=== PATIENT | female | born 1955 | race Caucasian/White ===

== ENCOUNTER 2016-07-21 11:20 | Outpatient (CLI) | payer OTHER | END 2016-07-21 11:21 | disposition home or self-care (01) | DX: R63.1 Polydipsia (principal); F10.20 Alcohol dependence, uncomplicated ==

== ENCOUNTER 2016-07-27 08:00 | Outpatient (CLI) | payer OTHER | END 2016-07-27 08:01 | disposition home or self-care (01) | DX: E87.1 Hypo-osmolality and hyponatremia (principal) ==

== ENCOUNTER 2016-11-15 10:10 | Outpatient (CLI) | payer OTHER ==
[2016-11-15 12:48] LABS: CALCIUM 9.1 mg/dL (8.5-10.3); CREATININE 0.6 mg/dL (0.4-1.0); POTASSIUM 3.8 mmol/L (3.5-5.0)
[2016-11-15 13:05] LABS: BASOPHILS % (AUTO) 0.7 %; EOSINOPHILS % (AUTO) 0.6 %; HCT - HEMATOCRIT 35.9 % (37.0-47.0); HGB - HEMOGLOBIN 12.5 g/dL (12.0-16.0); LYMPHOCYTES % (AUTO) 19.3 %; MEAN CORPUSCULAR HEMOGLOBIN 33.3 pg (27.0-31.0); MEAN CORPUSCULAR HGB CONC 34.9 g/dL (32.0-36.0); MEAN CORPUSCULAR VOLUME 95.3 fL (81.0-99.0); MEAN PLATELET VOLUME 7.8 fL (7.9-10.8); MONOCYTES # (AUTO) 0.5 10^3/uL (0.0-1.0); NEUTROPHILS # (AUTO) 3.6 10^3/uL (1.5-6.6); NEUTROPHILS % (AUTO) 70.4 %; NUCLEATED RED BLOOD CELLS AUTO 0.1 /100WBC; RED BLOOD COUNT 3.76 10^6/uL (4.20-5.40); RED CELL DISTRIBUTION WIDTH 12.5 % (12.0-15.0); UNCORRECTED WHITE BLOOD COUNT 5.1 x10^3/uL; WHITE BLOOD COUNT 5.1 x10^3/uL (4.8-10.8)
== END 2016-11-15 10:11 | disposition home or self-care (01) ==
LOC: LAB.WCP 10:10
PROVIDERS: ATTEND Family Medicine
DX: R42 Dizziness and giddiness (principal)
CPT/HCPCS: 36415; 80053; 85025

== ENCOUNTER 2017-05-30 11:09 | Emergency (ER) | payer OTHER ==
[2017-05-30 12:41] LABS: ALBUMIN 4.9 g/dL (3.2-5.5); ALBUMIN/GLOBULIN RATIO 1.7 (1.0-2.2); BILIRUBIN,TOTAL 0.8 mg/dL (0.2-1.0); CALCIUM 9.3 mg/dL (8.5-10.3); CREATININE 0.7 mg/dL (0.4-1.0); TOTAL PROTEIN 7.8 g/dL (6.7-8.2)
[2017-05-30 12:50] LABS: BASOPHILS % (AUTO) 0.2 %; EOSINOPHILS % (AUTO) 0.3 %; HGB - HEMOGLOBIN 13.8 g/dL (12.0-16.0); LYMPHOCYTES # (AUTO) 0.8 10^3/uL (1.5-3.5); LYMPHOCYTES % (AUTO) 11.3 %; MEAN CORPUSCULAR HEMOGLOBIN 33.2 pg (27.0-31.0); MEAN CORPUSCULAR HGB CONC 33.5 g/dL (32.0-36.0); MEAN CORPUSCULAR VOLUME 99.2 fL (81.0-99.0); MEAN PLATELET VOLUME 7.8 fL (7.9-10.8); MONOCYTES # (AUTO) 0.7 10^3/uL (0.0-1.0); MONOCYTES % (AUTO) 9.1 %; NEUTROPHILS # (AUTO) 5.9 10^3/uL (1.5-6.6); NEUTROPHILS % (AUTO) 79.1 %; PLT - PLATELET COUNT 371 10^3/uL (130-450); RED BLOOD COUNT 4.15 10^6/uL (4.20-5.40); RED CELL DISTRIBUTION WIDTH 13.5 % (12.0-15.0); WHITE BLOOD COUNT 7.4 x10^3/uL (4.8-10.8)
--- NOTE | 2017-05-30 12:51 | XRAY Preliminary Report ---
Exam: XR CHEST 2 VIEW X-RAY IMPRESSION: 1. No acute disease in the chest. [facility] SITE ID: [id number]
--- NOTE | 2017-05-30 12:52 | XRAY Report ---
EXAM: CHEST RADIOGRAPHY EXAM DATE: 05/30/2017 12:41 PM. CLINICAL HISTORY: Cough. Weakness. Dyspnea on exertion COMPARISON: None. TECHNIQUE: 2 views. FINDINGS: Lungs/Pleura: No focal opacities evident. No pleural effusion. No pneumothorax. Normal volumes. Mediastinum: Heart size is normal. Aorta is mildly tortuous. Other: Degenerative of the thoracic spine and both shoulders. IMPRESSION: 1. No acute disease in the chest. [facility] Referring Provider Line: [phone] SITE ID: [id number]
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
[2017-05-30 13:07] VITALS: BP 187/108
[2017-05-30 13:07] LABS: RBC MORPHOLOGY (MULTIPLE) 2+ ANISOCYTOSIS (NORMAL)
== END 2017-05-30 13:07 | disposition home or self-care (01) ==
LOC: ED 11:09
DX: J06.9 Acute upper respiratory infection, unspecified (principal); E87.1 Hypo-osmolality and hyponatremia; R74.0 Nonspecific elevation of levels of transaminase and lactic acid dehydrogenase [LDH]; F10.20 Alcohol dependence, uncomplicated; R00.0 Tachycardia, unspecified; R03.0 Elevated blood-pressure reading, without diagnosis of hypertension
CPT/HCPCS: 36415; 71046; 80053; 83605; 83690; 85025; 99283

== ENCOUNTER 2018-07-04 11:30 | Outpatient (CLI) | payer OTHER ==
[2018-07-04 19:33] LABS: BASOPHILS % (AUTO) 0.8 %; EOSINOPHILS # (AUTO) 0.1 10^3/uL (0.0-0.7); HGB - HEMOGLOBIN 13.3 g/dL (12.0-16.0); LYMPHOCYTES % (AUTO) 17.6 %; MEAN CORPUSCULAR HEMOGLOBIN 33.5 pg (27.0-31.0); MEAN CORPUSCULAR HGB CONC 34.1 g/dL (32.0-36.0); MEAN CORPUSCULAR VOLUME 98.2 fL (81.0-99.0); MEAN PLATELET VOLUME 7.9 fL (7.9-10.8); MONOCYTES # (AUTO) 0.5 10^3/uL (0.0-1.0); MONOCYTES % (AUTO) 9.6 %; PLT - PLATELET COUNT 284 10^3/uL (130-450); RED BLOOD COUNT 3.98 10^6/uL (4.20-5.40); RED CELL DISTRIBUTION WIDTH 12.8 % (12.0-15.0); WHITE BLOOD COUNT 5.6 x10^3/uL (4.8-10.8)
[2018-07-04 20:42] LABS: ALBUMIN/GLOBULIN RATIO 1.7 (1.0-2.2)
[2018-07-04 20:43] LABS: ALBUMIN 4.7 g/dL (3.2-5.5); ALKALINE PHOSPHATASE 61 IU/L (42-121); ALT ALANINE AMINOTRANSFERASE 34 IU/L (10-60); AST ASPARTATE AMINOTRANSFERASE 31 IU/L (10-42); BILIRUBIN,TOTAL 1.2 mg/dL (0.2-1.0); BUN - BLOOD UREA NITROGEN 11 mg/dL (6-20); CALCIUM 9.1 mg/dL (8.5-10.3); CARBON DIOXIDE - CO2 28 mmol/L (21-32); CHLORIDE 82 mmol/L (101-111); CHOL/HDL RATIO 1.9 (<4.4); CHOLESTEROL 235 mg/dL; CREATININE 0.5 mg/dL (0.4-1.0); GFR - MDRD 124 (>89); GLUCOSE 125 mg/dL (70-100); HDL CHOLESTEROL 125 mg/dL; TOTAL PROTEIN 7.4 g/dL (6.7-8.2); URIC ACID 3.5 mg/dL (2.6-7.2)
[2018-07-04 20:54] LABS: SODIUM 119 mmol/L (135-145)
[2018-07-04 21:19] LABS: LDL CHOLESTEROL,DIRECT 97 mg/dL; LDLD/HDL RATIO 0.8 (<4.4)
== END 2018-07-04 11:31 | disposition home or self-care (01) ==
LOC: LAB.WCP 11:30
PROVIDERS: ATTEND Family Medicine
DX: I10 Essential (primary) hypertension (principal); F10.20 Alcohol dependence, uncomplicated
CPT/HCPCS: 36415; 80053; 80061; 83721; 84550; 85025

== ENCOUNTER 2018-07-05 11:36 | Outpatient (CLI) | payer OTHER ==
[2018-07-05 12:29] LABS: ALBUMIN 4.9 g/dL (3.2-5.5); ALBUMIN/GLOBULIN RATIO 1.8 (1.0-2.2); BILIRUBIN,TOTAL 1.3 mg/dL (0.2-1.0); CALCIUM 8.8 mg/dL (8.5-10.3); CREATININE 0.5 mg/dL (0.4-1.0); TOTAL PROTEIN 7.6 g/dL (6.7-8.2)
== END 2018-07-05 11:37 | disposition home or self-care (01) ==
LOC: LAB 11:36
PROVIDERS: ATTEND Family Medicine
DX: E87.1 Hypo-osmolality and hyponatremia (principal)
CPT/HCPCS: 36415; 80053; 83930; 83935; 84300

== ENCOUNTER 2018-07-09 10:04 | Outpatient (CLI) | payer OTHER ==
[2018-07-09 18:08] LABS: CALCIUM 9.4 mg/dL (8.5-10.3); CREATININE 0.5 mg/dL (0.4-1.0)
== END 2018-07-09 10:05 | disposition home or self-care (01) ==
LOC: LAB.F 10:04
PROVIDERS: ATTEND Family Medicine
DX: E87.1 Hypo-osmolality and hyponatremia (principal)
CPT/HCPCS: 36415; 80048; 83930; 83935; 84300

== ENCOUNTER 2018-08-21 11:20 | Outpatient (CLI) | payer OTHER ==
[2018-08-21 19:32] LABS: ALBUMIN 4.7 g/dL (3.2-5.5); ALBUMIN/GLOBULIN RATIO 1.7 (1.0-2.2); BILIRUBIN,TOTAL 1.2 mg/dL (0.2-1.0); CALCIUM 8.8 mg/dL (8.5-10.3); CREATININE 0.4 mg/dL (0.4-1.0); TOTAL PROTEIN 7.4 g/dL (6.7-8.2)
== END 2018-08-21 11:21 | disposition home or self-care (01) ==
LOC: LAB.WCP 11:20
PROVIDERS: ATTEND Family Medicine
DX: E87.1 Hypo-osmolality and hyponatremia (principal)
CPT/HCPCS: 36415; 80053

== ENCOUNTER 2018-09-29 13:23 | Outpatient (CLI) | payer MEDICARE, OTHER | END 2018-09-29 13:24 | disposition critical access hospital (66) | LOC: EMS 13:23 | PROVIDERS: ATTEND Surgery | DX: R07.9 Chest pain, unspecified (principal); R06.02 Shortness of breath ==

== ENCOUNTER 2018-09-29 13:43 | Emergency (ER) | payer MEDICARE, OTHER ==
[2018-09-29 14:12] LABS: BILIRUBIN,URINE NEGATIVE (NEGATIVE); GLUCOSE, URINE (UA) NEGATIVE (NEGATIVE); KETONES,URINE (UA) NEGATIVE (NEGATIVE); LEUKOCYTE ESTERASE, URINE NEGATIVE (NEGATIVE); NITRITE,URINE NEGATIVE (NEGATIVE); OCCULT BLOOD,URINE NEGATIVE (NEGATIVE); PROTEIN,URINE NEGATIVE (NEGATIVE); UROBILINOGEN,URINE 0.2 (NORMAL) E.U./dL (NORMAL)
[2018-09-29 14:15] LABS: CLARITY,URINE CLEAR (CLEAR)
--- NOTE | 2018-09-29 14:33 | ED Physician Documentation ---
History of Present Illness - Stated complaint Stated Complaint: ALLERGIC RX - Chief complaint Chief Complaint: Allergic Rx - History obtained from History obtained from: Patient, EMS - History of Present Illness Timing: How many hours ago (2) Pain level max: 0 Pain level now: 0 Improved by: nothing Worsened by: nothing - Additonal information Additional information: states she started naltrexone today to reduce EtOH cravings. Normally drinks 1.5 liters of wine per day. States drank more than usual last night and took naltrexone for the first time today. Feels tired, weak and like she had a hard time breathing. No rash. Thinks her tongue felt swollen, states that she feels better now. No meds taken. Review of Systems Constitutional: denies: Fever, Chills Respiratory: denies: Cough GI: denies: Nausea, Vomiting, Diarrhea Skin: denies: Rash Musculoskeletal: denies: Neck pain, Back pain Neurologic: denies: Headache PD PAST MEDICAL HISTORY - Past Medical History Past Medical History: Yes GI: GERD - Past Surgical History Past Surgical History: Yes General: Appendectomy Ortho: Spine surgery HEENT: Cataracts - Present Medications Home Medications: Ambulatory Orders Medication Instructions Recorded Confirmed Naltrexone HCl 50 mg PO DAILY 09/29/18 09/29/18 Omeprazole 20 mg PO DAILY 09/29/18 09/29/18 - Allergies Allergies/Adverse Reactions: Allergies Allergy/AdvReac Type Severity Reaction Status Date / Time Sulfa (Sulfonamide Allergy Intermediate Hives Verified 09/29/18 14:44 Antibiotics) - Living Situation Living Arrangement: reports: At home - Social History Does the pt smoke?: No Smoking Status: Never smoker Does the pt drink ETOH?: Yes ETOH Use: Wine Does the pt have substance abuse?: No - Family History Family history: reports: Non contributory - Immunizations Immunizations are current?: Yes PD ED PE NORMAL - Vitals Vital signs reviewed: Yes - General General: Alert and oriented X 3, No acute distress, Well developed/nourished - HEENT HEENT: PERRL, Ears normal, Moist mucous membranes, Pharynx benign - Neck Neck: Supple, no meningeal sign - Cardiac Cardiac: RRR, Strong equal pulses - Respiratory Respiratory: No respiratory distress, Clear bilaterally - Abdomen Abdomen: Soft, Non tender, Non distended - Derm Derm: Warm and dry, No rash - Extremities Extremities: No edema - Neuro Neuro: Alert and oriented X 3 - Psych Psych: Normal mood, Normal affect Results - Vitals Vitals: Vital Signs - 24 hr 09/29/18 09/29/18 13:54 15:50 Temperature 36.6 C Heart Rate 76 74 Respiratory 15 13 Rate Blood Pressure 172/97 H 182/90 H O2 Saturation 100 100 Oxygen O2 Source Room air - EKG (time done) 1409 Rate: Rate (enter#) (73) Rhythm: NSR [place]: Normal Intervals: Normal [place] QRS: Normal Ischemia: Normal ST segments - Labs Labs: Laboratory Tests 09/29/18 09/29/18 09/29/18 14:05 14:55 14:55 WBC 3.7 L RBC 3.54 L Hgb 11.9 L Hct 35.0 L MCV 99.0 MCH 33.7 H MCHC 34.0 RDW 13.1 Plt Count 243 MPV 7.9 Neut # (Auto) 2.7 Lymph # (Auto) 0.5 L [place] # (Auto) 0.4 Eos # (Auto) 0.1 Baso # (Auto) 0.0 Absolute Nucleated RBC 0.00 Nucleated RBC % 0.1 Sodium 130 L Potassium 3.9 Chloride 93 L Carbon Dioxide 24 Anion Gap 13.0 BUN 13 Creatinine 0.4 Estimated GFR (MDRD) 160 Glucose 118 H Calcium 9.0 Total Bilirubin 1.0 AST 20 ALT 20 Alkaline Phosphatase 65 Total Protein 6.6 L Albumin 4.4 Globulin 2.2 Albumin/Globulin Ratio 2.0 Lipase 28 Urine Color LIGHT YELLOW Urine Clarity CLEAR Urine pH 7.0 Ur Specific [place] <=1.005 Urine Protein NEGATIVE Urine Glucose (UA) NEGATIVE Urine Ketones NEGATIVE Urine Occult Blood NEGATIVE Urine Nitrite NEGATIVE Urine Bilirubin NEGATIVE Urine Urobilinogen 0.2 (NORMAL) Ur Leukocyte Esterase NEGATIVE Ur Microscopic Review NOT INDICATED Urine Culture Comments NOT INDICATED PD MEDICAL DECISION MAKING - ED course Complexity details: reviewed results, re-evaluated patient, considered differential, d/w patient ED course: No acute findings here. Appears to be a medication side effect. Will stop the naltrexone. We will have her follow-up with her doctor for further care. Patient has had hyponatremia in the past, therefore laboratory testing was performed. She was also given IV fluids. Patient counseled regarding signs and symptoms for which I believe and urgent re-evaluation would be necessary. Patient with good understanding of and agreement to plan and is comfortable going home at this time This document was made in part using voice recognition software. While efforts are made to proofread this document, sound alike and grammatical errors may occ ur. Departure - Departure Disposition: 01 Home, Self Care Clinical Impression: Medication side effect Condition: Good Instructions: ED Drug React Adverse Other Follow-Up: Bebeto Lyons DO [Primary Care Provider] - Within 1 week Comments: Talk to your doctor to decide if he should continue taking the naltrexone. Gabapentin may also be used to decrease alcohol cravings and they may want to change you to this. Return if you worsen Discharge Date/Time: 09/29/18 15:53
[2018-09-29] MEDS ORDERED: SODIUM CHLORIDE 0.9% 1,000 ML IV ONE (14:42)
[2018-09-29 15:25] LABS: EOSINOPHILS # (AUTO) 0.1 10^3/uL (0.0-0.7); EOSINOPHILS % (AUTO) 1.5 %; HGB - HEMOGLOBIN 11.9 g/dL (12.0-16.0); LYMPHOCYTES # (AUTO) 0.5 10^3/uL (1.5-3.5); LYMPHOCYTES % (AUTO) 14.2 %; MEAN CORPUSCULAR HEMOGLOBIN 33.7 pg (27.0-31.0); MEAN PLATELET VOLUME 7.9 fL (7.9-10.8); MONOCYTES # (AUTO) 0.4 10^3/uL (0.0-1.0); MONOCYTES % (AUTO) 11.3 %; NEUTROPHILS # (AUTO) 2.7 10^3/uL (1.5-6.6); PLT - PLATELET COUNT 243 10^3/uL (130-450); RED BLOOD COUNT 3.54 10^6/uL (4.20-5.40); RED CELL DISTRIBUTION WIDTH 13.1 % (12.0-15.0); WHITE BLOOD COUNT 3.7 x10^3/uL (4.8-10.8)
[2018-09-29 15:41] LABS: ALBUMIN 4.4 g/dL (3.2-5.5); CREATININE 0.4 mg/dL (0.4-1.0); TOTAL PROTEIN 6.6 g/dL (6.7-8.2)
[2018-09-29 15:52] VITALS: BP 182/90
== END 2018-09-29 15:53 | disposition home or self-care (01) ==
LOC: EDUNIT# → ED 13:43
DX: R53.83 Other fatigue (principal); R53.1 Weakness; R06.00 Dyspnea, unspecified; T50.7X5A Adverse effect of analeptics and opioid receptor antagonists, initial encounter
CPT/HCPCS: 36415; 80053; 81001; 81003; 83690; 85025; 87086; 93005; 96360; 99282; 99283

== ENCOUNTER 2018-09-30 15:17 | Outpatient (CLI) | payer MEDICARE, OTHER | END 2018-09-30 23:59 | disposition home or self-care (01) | LOC: LAB.WCP 15:17 | PROVIDERS: ATTEND Family Medicine | DX: Z23 Encounter for immunization (principal) | CPT/HCPCS: 36415; 86765 ==

== ENCOUNTER 2018-10-14 05:40 | Day surgery (SDC) | payer MEDICARE, OTHER ==
[2018-10-14] MEDS ORDERED: LACTATED RINGERS 1,000 ML IV ONE (07:05)
[2018-10-14] MEDS ORDERED: LIDO GARGLE 30 ML BOTTLE ONE (07:08)
--- NOTE | 2018-10-14 07:15 | ANESTHESIA ---
Pre-Anesthesia VS, & Labs - Diagnosis gerd, hx of colon polyps - Procedure egd, colonoscopy Vital Signs: Temp Pulse Resp BP Pulse Ox 36.8 C 66 16 197/99 H 100 10/14/18 06:46 10/14/18 06:46 10/14/18 06:46 10/14/18 06:46 10/14/18 06:46 Height 5 ft 5 in Weight (kg) 54.4 kg Body Mass Index 43.1 - Is Patient ?: Not Applicable Home Medications and Allergies Home Medications: Ambulatory Orders Loratadine [Claritin] 1 PRN 10/14/18 Omeprazole 20 mg PO DAILY 09/29/18 Loratadine [Claritin] 1 PRN 10/14/18 Allergies/Adverse Reactions: Allergies Allergy/AdvReac Type Severity Reaction Status Date / Time Sulfa (Sulfonamide Allergy Intermediate Hives Verified 09/29/18 14:44 Antibiotics) lisinopril Allergy Unknown Verified 10/10/18 14:39 metoprolol [From Lopressor] Allergy Unknown Verified 10/10/18 14:39 naltrexone Allergy Unknown Verified 10/10/18 14:39 hydrochlorothiazide AdvReac Severe Cramps Verified 10/14/18 06:56 antibiotic Allergy Unknown Uncoded 10/14/18 07:08 Anes History & Medical History - Anesthetic History Anesthesia Complications: reports: Post-Operative Nausea/Vomiting Family history of Anesthesia Complications: Denies Family history of Malignant Hyperthermia: Denies - Medical History Cardiovascular: reports: Hypertension Pulmonary: reports: None Gastrointestinal: reports: GERD, Colon polyps, Diverticulitis, Other Urinary: reports: None Neuro: reports: None Musculoskeletal: reports: Osteoarthritis, Osteopenia, Chronic back pain Endocrine/Autoimmune: reports: None Skin: reports: None Smoking Status: Never smoker - Surgical History General: Appendectomy, Colonoscopy Eyes Ears Nose Throat (EENT): Cataracts Gynecologic: Other Orthopedic: Spine surgery, Other Exam General: Alert, Oriented x3, Cooperative, No acute distress Dental: Other (cap) Mouth Openin Fingerbreadth Neck Mobility: Normal Mallampati classification: II Thyromental Distance: greater than 6 cm Respiratory: Lungs clear, Normal breath sounds, No respiratory distress, No accessory muscle use Cardiovascular: Regular rate, Normal S1, Normal S2, No murmurs Plan Anesthesia Type: MAC Consent for Procedure(s) Verified and Reviewed: Yes Code Status: Attempt Resuscitation ASA classification: 2-Mild systemic disease Is this case an emergency?: No
[2018-10-14] MEDS ORDERED: SCOPOLAMINE PATCH TOP ONE (07:27)
[2018-10-14] MEDS ORDERED: LIDO GARGLE 30 ML BOTTLE PO ONE (07:58)
[2018-10-14] MEDS ORDERED: MIDAZOLAM 2 MG/2 ML VIAL IVP ONE (08:30)
[2018-10-14] MEDS ORDERED: PROPOFOL 200 MG/20 ML VIAL IVP ONE (08:30)
[2018-10-14] MEDS ORDERED: diphenhydrAMINE INJ 50 MG/ML VIAL IVP ONE (08:30)
[2018-10-14] MEDS ORDERED: fentaNYL 100 MCG/2 ML VIAL IVP ONE (08:30)
[2018-10-14] MEDS ORDERED: ONDANSETRON 4 MG/2 ML VIAL IVP ONE (08:30)
[2018-10-14 09:48] VITALS: BP 172/98
== END 2018-10-14 05:41 | disposition home or self-care (01) ==
LOC: SDS 05:40
PROVIDERS: ATTEND Internal Medicine Gastroenterology
PROC: 0DBG8ZX Excision of Left Large Intestine, Via Natural or Artificial Opening Endoscopic, Diagnostic (ICD-10-PCS; 2018-10-14)
PROC: 0DB98ZX Excision of Duodenum, Via Natural or Artificial Opening Endoscopic, Diagnostic (ICD-10-PCS; 2018-10-14)
PROC: 0DB78ZX Excision of Stomach, Pylorus, Via Natural or Artificial Opening Endoscopic, Diagnostic (ICD-10-PCS; 2018-10-14)
PROC: 0DB48ZX Excision of Esophagogastric Junction, Via Natural or Artificial Opening Endoscopic, Diagnostic (ICD-10-PCS; 2018-10-14)
PROC: 0DBM8ZZ Excision of Descending Colon, Via Natural or Artificial Opening Endoscopic (ICD-10-PCS; principal; 2018-10-14 07:30)
PROC: 0DBF8ZX Excision of Right Large Intestine, Via Natural or Artificial Opening Endoscopic, Diagnostic (ICD-10-PCS; 2018-10-14 07:30)
DX: R19.7 Diarrhea, unspecified (principal); K21.9 Gastro-esophageal reflux disease without esophagitis; J39.2 Other diseases of pharynx; D12.4 Benign neoplasm of descending colon; K57.30 Diverticulosis of large intestine without perforation or abscess without bleeding; K29.50 Unspecified chronic gastritis without bleeding; F10.20 Alcohol dependence, uncomplicated; Z87.891 Personal history of nicotine dependence; I10 Essential (primary) hypertension
CPT/HCPCS: 43239; 45380; A9270; J1200; J3490; J7120

== ENCOUNTER 2020-04-12 08:00 | Outpatient (CLI) | payer MEDICARE, OTHER ==
[2020-04-12 13:46] LABS: BASOPHILS # (AUTO) 0.1 10^3/uL (0.0-0.1); BASOPHILS % (AUTO) 1.1 %; EOSINOPHILS # (AUTO) 0.2 10^3/uL (0.0-0.7); EOSINOPHILS % (AUTO) 3.8 %; HGB - HEMOGLOBIN 12.5 g/dL (12.0-16.0); LYMPHOCYTES # (AUTO) 1.2 10^3/uL (1.5-3.5); LYMPHOCYTES % (AUTO) 27.3 %; MEAN CORPUSCULAR HEMOGLOBIN 32.6 pg (27.0-31.0); MEAN CORPUSCULAR HGB CONC 33.6 g/dL (32.0-36.0); MEAN CORPUSCULAR VOLUME 96.9 fL (81.0-99.0); MEAN PLATELET VOLUME 10.3 fL (7.9-10.8); MONOCYTES # (AUTO) 0.5 10^3/uL (0.0-1.0); MONOCYTES % (AUTO) 11.6 %; NEUTROPHILS # (AUTO) 2.5 10^3/uL (1.5-6.6); NEUTROPHILS % (AUTO) 55.8 %; PLT - PLATELET COUNT 335 10^3/uL (130-450); RED BLOOD COUNT 3.84 10^6/uL (4.20-5.40); RED CELL DISTRIBUTION WIDTH 12.3 % (12.0-15.0); WHITE BLOOD COUNT 4.5 x10^3/uL (4.8-10.8)
[2020-04-12 13:49] LABS: PT - PROTHROMBIN TIME 10.7 secs (9.9-12.6)
[2020-04-12 14:21] LABS: ALBUMIN 4.7 g/dL (3.2-5.5); ALBUMIN/GLOBULIN RATIO 1.8 (1.0-2.2); BILIRUBIN,TOTAL 0.5 mg/dL (0.2-1.0); CALCIUM 9.3 mg/dL (8.5-10.3); CREATININE 0.5 mg/dL (0.4-1.0); TOTAL PROTEIN 7.3 g/dL (6.7-8.2)
[2020-04-12 14:22] LABS: FERRITIN 167.9 ng/mL (11.0-306.8)
[2020-04-12 14:26] LABS: FOLATE 4.96 ng/mL (5.90 - >24.8)
== END 2020-04-12 23:59 | disposition home or self-care (01) ==
LOC: LAB.WCP 08:00
PROVIDERS: ATTEND Family Medicine
DX: E87.1 Hypo-osmolality and hyponatremia (principal); D64.9 Anemia, unspecified; F10.20 Alcohol dependence, uncomplicated
CPT/HCPCS: 36415; 80053; 82607; 82728; 82746; 82977; 83540; 83930; 83935; 84300; 84466; 85025; 85610

== ENCOUNTER 2020-06-05 13:38 | Emergency (ER) | payer MEDICARE, OTHER ==
--- NOTE | 2020-06-05 13:54 | ED Physician Documentation ---
PD HPI FOCAL NEURO - Stated complaint Stated Complaint: HEAD PX/HIGH BLOOD PRESSURE - History obtained from History obtained from: Patient - Additional information Additional information: 64-year-old woman with history of hypertension alcohol abuse presents with acute complaints starting today that she thinks are related to starting a clonidine patch 4 days ago. She has been on several antihypertensives in the past without improvement in with her blood pressure and with some intolerable side effects and as such started clonidine patch 4 days ago. Today developed a mild headache, she feels out of it, shaky. She is quite anxious. She feels like this may be related to the new blood pressure medication. She admits to heavy drinking in the past although has been trying to cut down lately. Last night only had 4 x 8 ounce glasses of wine. She says in recent history she has been having as many as 10 x 8 ounce glasses of wine a night. Review of Systems Constitutional: denies: Fever, Chills, Myalgias, Fatigue Eyes: denies: Loss of vision, Decreased vision Ears: denies: Loss of hearing, Ear pain Nose: reports: Congestion. 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 HEENT: Cataracts - Present Medications Home Medications: Ambulatory Orders Medication Instructions Recorded Confirmed Omeprazole 20 mg PO DAILY 09/29/18 10/10/18 Loratadine [Claritin] 1 PRN 10/14/18 hydrALAZINE [Apresoline] 25 mg PO QID #120 tablet 06/05/20 - Allergies Allergies/Adverse Reactions: Allergies Allergy/AdvReac Type Severity Reaction Status Date / Time Sulfa (Sulfonamide Allergy Intermediate Hives Verified 06/05/20 14:30 Antibiotics) lisinopril Allergy Unknown Verified 06/05/20 14:30 metoprolol [From Lopressor] Allergy Unknown Verified 06/05/20 14:30 naltrexone Allergy Unknown Verified 06/05/20 14:30 hydrochlorothiazide AdvReac Severe Cramps Verified 06/05/20 14:30 antibiotic Allergy Unknown Uncoded 06/05/20 14:30 - Social History Does the pt smoke?: No Smoking Status: Never smoker Does the pt drink ETOH?: Yes Does the pt have substance abuse?: No - Immunizations Immunizations are current?: Yes PD ED PE NORMAL - Vitals Vital signs reviewed: Yes - General General: Alert and oriented X 3, Other (She is anxious but not tremulous, no asterixis.) - HEENT HEENT: PERRL, EOMI, Other (Mildly icteric) - Neck Neck: Supple, no meningeal sign, No bony TTP - Cardiac Cardiac: RRR, No murmur - Respiratory Respiratory: No respiratory distress, Clear bilaterally - Abdomen Abdomen: Normal bowel sounds, Soft, Non tender - Back Back: No CVA TTP, No spinal TTP - Derm Derm: Normal color, Warm and dry - Extremities Extremities: No edema, No calf tenderness / cord - Neuro Neuro: Alert and oriented X 3, No motor deficit, No sensory deficit, Normal speech Eye Opening: Spontaneous Motor: Obeys Commands Verbal: Oriented GCS Score: 15 Results - Vitals Vitals: Vital Signs - 24 hr 06/05/20 06/05/20 06/05/20 13:45 14:25 14:30 Temperature 36.7 C Heart Rate 72 69 68 Respiratory 19 19 20 Rate Blood Pressure 211/112 H 201/97 H 186/99 H O2 Saturation 100 99 98 06/05/20 06/05/20 06/05/20 15:00 15:02 15:12 Temperature 37.0 C Heart Rate 75 74 75 Respiratory 17 14 16 Rate Blood Pressure 203/106 H 203/109 H 210/101 H O2 Saturation 99 100 98 Oxygen O2 Source Room air - EKG (time done) 1357 Rate: Rate (enter#) (65) Rhythm: NSR [place]: Normal Intervals: Normal [place] QRS: Normal Ischemia: Normal ST segments Computer interpretation: Agree with computer - Labs Labs: Laboratory Tests 06/05/20 06/05/20 06/05/20 13:54 13:54 13:54 WBC 4.7 L RBC 3.92 L Hgb 12.6 Hct 37.6 MCV 95.9 MCH 32.1 H MCHC 33.5 RDW 12.3 Plt Count 266 MPV 9.4 Neut # (Auto) 2.6 Lymph # (Auto) 1.3 L [place] # (Auto) 0.6 Eos # (Auto) 0.1 Baso # (Auto) 0.0 Absolute Nucleated RBC 0.00 Nucleated RBC % 0.0 PT 12.1 INR 1.1 Sodium 126 L Potassium 3.4 L Chloride 92 L Carbon Dioxide 23 Anion Gap 11.0 BUN 15 Creatinine 0.6 Estimated GFR (MDRD) 100 Glucose 110 H Calcium 9.3 Magnesium 1.9 Total Bilirubin 1.2 H AST 17 ALT 21 Alkaline Phosphatase 72 Total Protein 7.7 Albumin 5.0 Globulin 2.7 Albumin/Globulin Ratio 1.9 Ethyl Alcohol < 5.0 PD MEDICAL DECISION MAKING - ED course ED course: 64-year-old woman with alcoholism presents with hypertension, headache, profound anxiety in the setting of cutting back on her alcohol. Work-up shows very mild liver damage with a meld score of [address] of the head without contrast can interpreted contemporaneously by me is normal. Social work saw her and offered arrangements for inpatient detox but the patient would like to go home and "handle her affairs." Before going inpatient. Blood pressure remained high here, she was offered Ativan but had been told by multiple physicians that she should not stop drinking suddenly and therefore plans to continue to drink until enrolling in detox. Therefore benzodiazepines would not be considered safe at this juncture. She was given hydralazine noting multiple Antihypertensive allergies and side effects, she did not tolerate lisinopril or metoprolol. She said that amlodipine made it so she could not put her shoes on and I discussed with her that this seemed enlarged scheme of things like a fairly mild side effect which she understood but still did not want to take that. Departure - Departure Disposition: 01 Home, Self Care Clinical Impression: Alcohol abuse Hypertension Qualifiers: Hypertension type: unspecified Qualified Code(s): I10 - Essential (primary) hypertension Condition: Stable Record reviewed to determine appropriate education?: Yes Instructions: ED HTN Established, ED Alcohol Abuse Prescriptions: hydrALAZINE [Apresoline] 25 mg PO QID #120 tablet Comments: As discussed, you do have evidence of alcoholic liver damage but at this juncture it is mild and I suspect that if he were to quit drinking, your liver will recover. You should continue to taper your alcohol use, if you change your mind about wanting to stop completely with medications, return for a prescription for something along the lines of lorazepam. He cannot drink without it although. Continue your efforts to try to get into inpatient detox. I will leave it between you and your primary care physician whether you want to continue the clonidine patch, as discussed, given the timing I doubt your current symptoms are related to that. I am prescribing another medication for blood pressure, hopefully once you have quit alcohol you may not need it anymore. This is not a first-line medication for blood pressure but chosen based on the fact that we do not want to give you anything that lowers your sodium, and other first-line medications have not agreed with you. Follow-up with your primary care physician for recheck and refills. Next available appointment.
[2020-06-05 14:03] LABS: BASOPHILS % (AUTO) 0.6 %; EOSINOPHILS # (AUTO) 0.1 10^3/uL (0.0-0.7); EOSINOPHILS % (AUTO) 2.6 %; HGB - HEMOGLOBIN 12.6 g/dL (12.0-16.0); LYMPHOCYTES # (AUTO) 1.3 10^3/uL (1.5-3.5); LYMPHOCYTES % (AUTO) 28.4 %; MEAN CORPUSCULAR HEMOGLOBIN 32.1 pg (27.0-31.0); MEAN CORPUSCULAR HGB CONC 33.5 g/dL (32.0-36.0); MEAN CORPUSCULAR VOLUME 95.9 fL (81.0-99.0); MEAN PLATELET VOLUME 9.4 fL (7.9-10.8); MONOCYTES # (AUTO) 0.6 10^3/uL (0.0-1.0); MONOCYTES % (AUTO) 12.4 %; NEUTROPHILS # (AUTO) 2.6 10^3/uL (1.5-6.6); NEUTROPHILS % (AUTO) 55.8 %; PLT - PLATELET COUNT 266 10^3/uL (130-450); RED BLOOD COUNT 3.92 10^6/uL (4.20-5.40); RED CELL DISTRIBUTION WIDTH 12.3 % (12.0-15.0); WHITE BLOOD COUNT 4.7 x10^3/uL (4.8-10.8)
[2020-06-05 14:10] LABS: INR 1.1 (0.8-1.2); PT - PROTHROMBIN TIME 12.1 secs (9.9-12.6)
[2020-06-05 14:13] LABS: ALBUMIN/GLOBULIN RATIO 1.9 (1.0-2.2); ALKALINE PHOSPHATASE 72 IU/L (42-121); ALT ALANINE AMINOTRANSFERASE 21 IU/L (10-60); AST ASPARTATE AMINOTRANSFERASE 17 IU/L (10-42); BILIRUBIN,TOTAL 1.2 mg/dL (0.2-1.0); BUN - BLOOD UREA NITROGEN 15 mg/dL (6-20); CALCIUM 9.3 mg/dL (8.5-10.3); CARBON DIOXIDE - CO2 23 mmol/L (21-32); CHLORIDE 92 mmol/L (101-111); CREATININE 0.6 mg/dL (0.4-1.0); GLUCOSE 110 mg/dL (70-100); MAGNESIUM 1.9 mg/dL (1.7-2.8); TOTAL PROTEIN 7.7 g/dL (6.7-8.2)
--- NOTE | 2020-06-05 14:44 | CT Report ---
PROCEDURE: HEAD WO INDICATIONS: headache TECHNIQUE: Noncontrast 4.5 mm thick angled axial sections acquired from the foramen magnum to the vertex. For r adiation dose reduction, the following was used: automated exposure control, adjustment of mA and/or kV according to patient size. COMPARISON: None. FINDINGS: Image quality: Excellent. CSF spaces: Basal cisterns are patent. No extra-axial fluid collections. Ventricles are normal in size and shape. Brain: No midline shift. No intracranial masses or hemorrhage. Anne-white matter interface is norm al. Skull and face: Calvarium and visualized facial bones are intact, without suspicious lesions. Sinuses: Mastoid air cells are clear. There is mucosal thickening of the ethmoid air cells as well as the left maxillary sinus. Mild amount of because thickening is noted within the inferior aspect of t he frontal sinuses and sphenoid sinuses as well. No air-fluid levels. IMPRESSION: No acute intracranial abnormality. Mild paranasal sinus disease. Reviewed by: Jonatan Rocha DO on 06/05/2020 1:42 PM [facility] Approved by: Jonatan Rocha DO on 06/05/2020 1:42 PM [facility] Station ID: [id number]
[2020-06-05] MEDS ORDERED: hydrALAZINE 25 MG TABLET PO STA (15:28)
[2020-06-05 16:17] VITALS: BP 175/86
== END 2020-06-05 16:20 | disposition home or self-care (01) ==
LOC: ED 13:38
DX: I10 Essential (primary) hypertension (principal); R51.9 Headache, unspecified; F41.9 Anxiety disorder, unspecified; F10.10 Alcohol abuse, uncomplicated; K70.9 Alcoholic liver disease, unspecified
CPT/HCPCS: 36415; 70450; 80053; 83735; 85025; 85610; 93005; 99284; A9270; 80320

== ENCOUNTER 2020-07-02 09:50 | Outpatient (CLI) | payer MEDICARE, OTHER ==
--- NOTE | 2020-07-02 16:42 | DEXA Report ---
PROCEDURE: Dexa Spine and/or Hip INDICATIONS: MENOPAUSE TECHNIQUE: Dual energy x-ray absorptiometry (DXA) was performed on a [employer] System. Regions measur ed are the AP Spine, femoral neck, and if needed forearm. COMPARISON: None. FINDINGS: Lumbar Spine: Bone Mineral Density 1.111 g/cm/cm,T score -0.6, normal Left Hip: Bone Mineral Density 0.719 g/cm/cm,T score -2.3, osteopenia Left Femoral Neck: Bone Mineral Density 0.7-0 g/cm/cm, T score -2.3, osteopenia (T score greater or equal to -1.0: NORMAL) (T score from -1.1 to -2.4: OSTEOPENIA) (T score less than or equal to -2.5 to: OSTEOPOROSIS) Impression: Osteopenia. Patients with diagnosis of osteoporosis or osteopenia should have regular bone mineral density assess ment. For those eligible for Medicare, routine testing is allowed once every 2 years. Testing frequ ency can be increased for patients who have rapidly progressing disease or for those who are receivin g medical therapy to restore bone mass. Reviewed by: Elisha Flores MD, PhD on 07/02/2020 4:41 PM PST Approved by: Elisha Flores MD, PhD on 07/02/2020 4:41 PM PST Station ID: [id number]
== END 2020-07-02 09:51 | disposition home or self-care (01) ==
LOC: DI 09:50
PROVIDERS: ATTEND Obstetrics & Gynecology
DX: M85.89 Other specified disorders of bone density and structure, multiple sites (principal); Z78.0 Asymptomatic menopausal state

== ENCOUNTER 2020-07-13 15:09 | Emergency (ER) | payer MEDICARE, OTHER ==
[2020-07-13 15:53] LABS: BASOPHILS # (AUTO) 0.1 10^3/uL (0.0-0.1); BASOPHILS % (AUTO) 1.2 %; EOSINOPHILS # (AUTO) 0.1 10^3/uL (0.0-0.7); EOSINOPHILS % (AUTO) 2.7 %; HCT - HEMATOCRIT 36.6 % (37.0-47.0); LYMPHOCYTES # (AUTO) 1.3 10^3/uL (1.5-3.5); MEAN CORPUSCULAR HEMOGLOBIN 30.9 pg (27.0-31.0); MEAN CORPUSCULAR HGB CONC 32.8 g/dL (32.0-36.0); MEAN CORPUSCULAR VOLUME 94.3 fL (81.0-99.0); MEAN PLATELET VOLUME 10.3 fL (7.9-10.8); MONOCYTES # (AUTO) 0.4 10^3/uL (0.0-1.0); MONOCYTES % (AUTO) 9.5 %; NEUTROPHILS # (AUTO) 2.3 10^3/uL (1.5-6.6); NEUTROPHILS % (AUTO) 55.4 %; PLT - PLATELET COUNT 250 10^3/uL (130-450); RED BLOOD COUNT 3.88 10^6/uL (4.20-5.40); RED CELL DISTRIBUTION WIDTH 11.8 % (12.0-15.0); WHITE BLOOD COUNT 4.1 x10^3/uL (4.8-10.8)
--- NOTE | 2020-07-13 15:57 | XRAY Report ---
PROCEDURE: Chest 1 View X-Ray INDICATIONS: Chest Pain TECHNIQUE: One view of the chest was acquired. COMPARISON: 05/30/2017 FINDINGS: Surgical changes and devices: None. Lungs and pleura: No pleural effusions or pneumothorax. Lungs are clear. Mediastinum: Mediastinal contours appear normal. Heart size is normal. Bones and chest wall: No suspicious bony lesions. Overlying soft tissues appear unremarkable. IMPRESSION: Chest without acute cardiopulmonary abnormalities. Reviewed by: Juan Ramon Alcala MD on 07/13/2020 3:56 PM [facility] Approved by: Juan Ramon Alcala MD on 07/13/2020 3:56 PM [facility] Station ID: [id number]
[2020-07-13 16:08] LABS: ALBUMIN 4.5 g/dL (3.2-5.5); ALBUMIN/GLOBULIN RATIO 1.8 (1.0-2.2); BILIRUBIN,TOTAL 0.8 mg/dL (0.2-1.0); CALCIUM 9.5 mg/dL (8.5-10.3); CREATININE 0.7 mg/dL (0.4-1.0); POTASSIUM 3.4 mmol/L (3.5-5.0)
[2020-07-13] MEDS ORDERED: LACTATED RINGERS 1,000 ML IV STA (16:53)
[2020-07-13] MEDS ORDERED: hydrOXYzine PAMOATE 25 MG CAPSULE PO STA (17:12)
--- NOTE | 2020-07-13 17:15 | ED Physician Documentation ---
History of Present Illness - Stated complaint Stated Complaint: DIZZY - Chief complaint Chief Complaint: Neuro - History obtained from History obtained from: Patient - Additonal information Additional information: 64yF former smoker with pmh htn on hydralazine, p/w lightheadedness intermittent since having a glaucoma surgery 07/07, progressively worsening over past three days so that it is now moderate severity and emotionally distressing, a/w sensation of anxiety. Symptoms are often elicited with sudden position changes. unsure if exertional. denies fevers, cp, sob leg swelling, baig, vision changes or other fnd. of note, she and her state that she is very sensitive to medications and she was given anesthesia for her surgery as well as postoperative eye drops. She also had her hydralazine recently increased by her pcp Dr. Hassan. Review of Systems Ten Systems: 10 systems reviewed and negative Constitutional: reports: Fatigue. denies: Fever, Chills Eyes: reports: Other (recent glaucoma surgery) Ears: denies: Ear pain, Tinnitus/ringing Cardiac: denies: Chest pain / pressure Respiratory: denies: Dyspnea GI: denies: Nausea Neurologic: reports: Near syncope. 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: Ovarian cysts : None HEENT: Chronic sinusitis Psych: Eating disorder Musculoskeletal: Osteoarthritis, Osteopenia, Chronic back pain Derm: None - Past Surgical History Past Surgical History: Yes General: Appendectomy, Colonoscopy Ortho: Spine surgery, Other /BOX TOE CUTTER: Other HEENT: Cataracts - Present Medications Home Medications: Ambulatory Orders Medication Instructions Recorded Confirmed Omeprazole 20 mg PO DAILY 09/29/18 10/10/18 Loratadine [Claritin] 1 PRN 10/14/18 hydrALAZINE [Apresoline] 25 mg PO QID #120 tablet 06/05/20 hydrOXYzine pamoate [Hydroxyzine 25 mg PO Q6H PRN #15 tab 07/13/20 Pamoate] - Allergies Allergies/Adverse Reactions: Allergies Allergy/AdvReac Type Severity Reaction Status Date / Time Sulfa (Sulfonamide Allergy Intermediate Hives Verified 07/13/20 15:13 Antibiotics) lisinopril Allergy Unknown Verified 07/13/20 15:13 metoprolol [From Lopressor] Allergy Unknown Verified 07/13/20 15:13 naltrexone Allergy Unknown Verified 07/13/20 15:13 hydrochlorothiazide AdvReac Severe Cramps Verified 07/13/20 15:13 antibiotic Allergy Unknown Uncoded 06/05/20 14:30 - Social History Does the pt smoke?: No Smoking Status: Never smoker Does the pt drink ETOH?: Yes Does the pt have substance abuse?: No - Immunizations Immunizations are current?: Yes PD ED PE NORMAL - Vitals Vital signs reviewed: Yes - General General: Alert and oriented X 3, No acute distress, Well developed/nourished - HEENT HEENT: Atraumatic, PERRL, EOMI - Neck Neck: Supple, no meningeal sign - Cardiac Cardiac: RRR - Respiratory Respiratory: No respiratory distress, Clear bilaterally - Abdomen Abdomen: Non tender, Non distended - Female Female : Deferred - Rectal Rectal: Deferred - Back Back: No spinal TTP - Derm Derm: Normal color, Warm and dry - Extremities Extremities: No deformity - Neuro Neuro: Alert and oriented X 3, commissions manager 2-12 intact, No motor deficit, No sensory deficit - Psych Psych: Other (anxious mood and affect. pleasant and conversant but intermittently tearful) Results - Vitals Vitals: Vital Signs - 24 hr 07/13/20 07/13/20 07/13/20 15:13 15:35 16:05 Temperature 36.8 C 36.7 C Heart Rate 87 84 Heart Rate [ 84 Sitting] Heart Rate [ 84 Standing] Heart Rate [ 83 Supine] Respiratory 18 14 Rate Blood Pressure 172/95 H 142/88 H Blood Pressure 142/88 H [Sitting] Blood Pressure 169/96 H [Standing] Blood Pressure 137/77 H [Supine] O2 Saturation 100 100 07/13/20 17:30 Temperature 36.2 C L Heart Rate 79 Heart Rate [ Sitting] Heart Rate [ Standing] Heart Rate [ Supine] Respiratory 18 Rate Blood Pressure 134/95 H Blood Pressure [Sitting] Blood Pressure [Standing] Blood Pressure [Supine] O2 Saturation 100 Oxygen O2 Source Room air - Labs Labs: Laboratory Tests 07/13/20 07/13/20 07/13/20 15:39 15:39 15:39 WBC 4.1 L RBC 3.88 L Hgb 12.0 Hct 36.6 L MCV 94.3 MCH 30.9 MCHC 32.8 RDW 11.8 L Plt Count 250 MPV 10.3 Neut # (Auto) 2.3 Lymph # (Auto) 1.3 L Richardson # (Auto) 0.4 Eos # (Auto) 0.1 Baso # (Auto) 0.1 Absolute Nucleated RBC 0.00 Nucleated RBC % 0.0 Sodium 130 L Potassium 3.4 L Chloride 95 L Carbon Dioxide 24 Anion Gap 11.0 BUN 9 Creatinine 0.7 Estimated GFR (MDRD) 84 L Glucose 146 H Calcium 9.5 Total Bilirubin 0.8 AST 19 ALT 32 Alkaline Phosphatase 57 Troponin I High Sens 2.8 Total Protein 7.0 Albumin 4.5 Globulin 2.5 Albumin/Globulin Ratio 1.8 Lipase 34 PD MEDICAL DECISION MAKING - ED course ED course: 64-year-old woman presented with intermittent lightheadedness over the past couple days. She states that she is sensitivity to medications and recently had anesthesia on July 07 for glaucoma surgery and has had dizziness on and off since that time that is worse with position changes. She is found to be orthostatic in the emergency room. Her EKG and blood work were otherwise noncontributory. Offered observation overnight to the patient who declined. She did request something for anxiety. Strict return precautions were discussed. Extensive education given about orthostatic hypotension and she will follow up with her primary Dr. Lyons about her medications and possible need for adjustment. Departure - Departure Disposition: 01 Home, Self Care Clinical Impression: Orthostatic hypotension Condition: Good Instructions: ED Hypotension Orthostatic Prescriptions: hydrOXYzine pamoate [Hydroxyzine Pamoate] 25 mg PO Q6H PRN #15 tab PRN Reason: Anxiety Comments: You were seen in the emergency department for lightheadedness. You were found to have orthostatic low blood pressure (orthostatic hypotension). You should follow-up with Dr. Lyons about your medications, particularly your hydralazine because it can have an effect on your blood pressure that may cause the symptoms of dizziness. It is also possible that since he recently had anesthesia from your eye surgery it may be affecting you. Try to take it easy over the next couple days. Return to the emergency department if you have any worsening of symptoms or other concerns. Do not drive while taking Atarax because it can be sedating. Discharge Date/Time: 07/13/20 17:30
[2020-07-13 18:00] VITALS: BP 134/95
== END 2020-07-13 17:30 | disposition home or self-care (01) ==
LOC: ED 15:09
DX: I95.1 Orthostatic hypotension (principal); F41.9 Anxiety disorder, unspecified; Z98.890 Other specified postprocedural states; I10 Essential (primary) hypertension; Z87.891 Personal history of nicotine dependence
CPT/HCPCS: 36415; 71045; 80053; 83690; 84484; 85025; 93005; 99284; A9270; J7120

== ENCOUNTER 2020-07-14 08:00 | Outpatient (CLI) | payer MEDICARE, OTHER | END 2020-07-14 23:59 | disposition home or self-care (01) | LOC: LAB.WCP 08:00 | PROVIDERS: ATTEND Nurse Practitioner Family | DX: E87.1 Hypo-osmolality and hyponatremia (principal) | CPT/HCPCS: 36415; 80053; 83930; 83935; 84300; 84443 ==

== ENCOUNTER 2020-07-14 14:18 | Emergency (ER) | payer MEDICARE, OTHER | END 2020-07-14 14:26 | disposition left against medical advice (07) | LOC: ED 14:18 | DX: Z53.21 Procedure and treatment not carried out due to patient leaving prior to being seen by health care provider (principal) ==

== ENCOUNTER 2020-07-14 17:03 | Emergency (ER) | payer MEDICARE, OTHER ==
[2020-07-14 17:18] VITALS: BP 160/81
== END 2020-07-14 18:45 | disposition left against medical advice (07) ==
LOC: ED 17:03
DX: Z53.21 Procedure and treatment not carried out due to patient leaving prior to being seen by health care provider (principal)

== ENCOUNTER 2020-07-14 18:13 | Outpatient (CLI) | payer MEDICARE, OTHER ==
[2020-07-14 18:59] LABS: ALBUMIN 4.5 g/dL (3.2-5.5); ALBUMIN/GLOBULIN RATIO 1.7 (1.0-2.2); CALCIUM 9.2 mg/dL (8.5-10.3); CREATININE 0.8 mg/dL (0.4-1.0); POTASSIUM 3.5 mmol/L (3.5-5.0); TOTAL PROTEIN 7.1 g/dL (6.7-8.2)
[2020-07-14 19:19] LABS: THYROID STIMULATING HORMONE 1.87 uIU/mL (0.34-5.60)
== END 2020-07-14 18:14 | disposition home or self-care (01) ==
LOC: LAB 18:13
PROVIDERS: ATTEND Nurse Practitioner Family
DX: E87.1 Hypo-osmolality and hyponatremia (principal)
CPT/HCPCS: 36415; 80053; 83930; 83935; 84300; 84443

== ENCOUNTER 2020-09-11 12:38 | Emergency (ER) | payer MEDICARE, OTHER ==
--- OUTSIDE RECORDS SUMMARY | 2020-09-11 12:43 | EXTERNAL MEDICAL SUMMARY RPT | Continuity of Care Document ---
:1955 Demographics Phone Unavailable Preferred Language Unknown Marital Status Unknown Latter Day Affiliation Unknown Race Unknown Ethnic Group Unknown Author Organization [facility] Address [address] [phone] Phone Social History date description facility [phone]
--- NOTE | 2020-09-11 13:11 | ED Physician Documentation ---
PD HPI ABD PAIN - Stated complaint Stated Complaint: CONSTIPATED - Chief complaint Chief Complaint: Abd Pain - History obtained from History obtained from: Patient - Additional information Additional information: 64-year-old woman has been having trouble with glaucoma lately and had a trabeculectomy 3 days ago. Has not really had a good bowel movement since either that day or the day before. She is tried a couple of laxatives without relief although she feels like she is impacted. She is very concerned about her eye pressures and wants to make sure we do not do anything that would increase her intraocular pressure. Her sociology research assistant is Dr. Ward and on-call is a Dr. Carlton. She already disimpacted herself at home, but feels like there might be more in there. Review of Systems Eyes: reports: Loss of vision, Decreased vision GI: reports: Constipation. 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: Ovarian cysts : None HEENT: Chronic sinusitis Psych: Eating disorder Musculoskeletal: Osteoarthritis, Osteopenia, Chronic back pain Derm: None - Past Surgical History Past Surgical History: Yes General: Appendectomy, Colonoscopy Ortho: Spine surgery, Other /HAND CROWN POUNCER: Other HEENT: Cataracts - Present Medications Home Medications: Ambulatory Orders Medication Instructions Recorded Confirmed Omeprazole 20 mg PO DAILY 09/29/18 10/10/18 Loratadine [Claritin] 1 PRN 10/14/18 hydrALAZINE [Apresoline] 25 mg PO QID #120 tablet 06/05/20 hydrOXYzine pamoate [Hydroxyzine 25 mg PO Q6H PRN #15 tab 07/13/20 Pamoate] - Allergies Allergies/Adverse Reactions: Allergies Allergy/AdvReac Type Severity Reaction Status Date / Time Sulfa (Sulfonamide Allergy Intermediate Hives Verified 09/11/20 12:51 Antibiotics) lisinopril Allergy Unknown Verified 09/11/20 12:51 metoprolol [From Lopressor] Allergy Unknown Verified 09/11/20 12:51 naltrexone Allergy Unknown Verified 09/11/20 12:51 hydrochlorothiazide AdvReac Severe Cramps Verified 09/11/20 12:51 antibiotic Allergy Unknown Uncoded 09/11/20 12:51 - Social History Does the pt smoke?: No Smoking Status: Never smoker Does the pt drink ETOH?: Yes Does the pt have substance abuse?: No - Immunizations Immunizations are current?: Yes PD ED PE NORMAL - Vitals Vital signs reviewed: Yes - General General: Alert and oriented X 3, No acute distress - Abdomen Abdomen: Normal bowel sounds, Soft, Non tender - Rectal Rectal: Other (see mdm) - Neuro Neuro: Alert and oriented X 3, Normal speech Results - Vitals Vitals: Vital Signs - 24 hr 09/11/20 09/11/20 09/11/20 12:41 14:51 15:55 Temperature 36.7 C 36.6 C Heart Rate 66 91 75 Respiratory 16 17 19 Rate Blood Pressure 144/67 H 130/87 H 155/76 H O2 Saturation 98 100 100 Oxygen O2 Source Room air PD MEDICAL DECISION MAKING - ED course ED course: 75-year-old woman presents with postoperative fecal impaction by history. She was very concerned about her intraocular pressures and requested that we contact her sociology research assistant prior to any attempts at disimpaction. I spoke with the on- call sociology research assistant Dr. Galvan who really had no specific concerns, and recommended routine care for this. Patient felt like something for anxiolysis before starting might be helpful and she was given some IM Ativan. After some time to let the Ativan work a rectal examination was done with Jhonny BARKER present and chaperoning. There was liquid stool in the vault, no tenderness, no hemorrhoids. Enema was instilled that she was also put in line for an x-ray to see how full of stool she was since she did not clearly have a impaction at least not within fingers reach. X-ray did not show significant stool load, she had already disimpacted herself at home so may have already fix the problem prior to arrival. Departure - Departure Disposition: Home, Self Care Clinical Impression: Fecal impaction Condition: Good Record reviewed to determine appropriate education?: Yes Instructions: ED Impaction Fecal Treated Discharge Date/Time: 09/11/20 15:55
--- OUTSIDE RECORDS SUMMARY | 2020-09-11 13:17 | EXTERNAL MEDICAL SUMMARY RPT | Continuity of Care Document ---
:1955 Demographics Phone Unavailable Preferred Language Unknown Marital Status Unknown Anglican Affiliation Unknown Race Unknown Ethnic Group Unknown Author Organization [facility] Address [address] [phone] Phone Social History date description facility [phone]
[2020-09-11] MEDS ORDERED: LORazepam 2 MG/ML VIAL IM STA (13:56)
--- NOTE | 2020-09-11 15:24 | XRAY Report ---
PROCEDURE: Abdomen 1 View X-Ray INDICATIONS: constipation TECHNIQUE: 1 view of the abdomen were acquired. COMPARISON: None FINDINGS: Surgical changes and devices: None. Bowel: No pneumoperitoneum. Nonobstructive bowel gas pattern. No dilated loops of bowel. No free air . Soft tissues: No masses; visualized solid organ contours appear normal in size. No suspicious abdom inal calcifications. Soft tissue calcification adjacent to the right greater trochanter which may re present sequela of prior trauma versus enthesophyte formation. Bones: No suspicious bony abnormalities. Degenerative changes of the spine with levocurvature of th e lower lumbar spine. IMPRESSION: Nonobstructive bowel gas pattern. Reviewed by: Jonatan Rocha DO on 09/11/2020 2:22 PM REINIER Approved by: Jonatan Rocha DO on 09/11/2020 2:22 PM REINIER Station ID: [id number]
[2020-09-11 15:55] VITALS: BP 155/76
== END 2020-09-11 15:55 | disposition home or self-care (01) ==
LOC: ED 12:38
DX: K56.41 Fecal impaction (principal); H40.9 Unspecified glaucoma; Z98.890 Other specified postprocedural states; I10 Essential (primary) hypertension
CPT/HCPCS: 74018; 96372; 99283; J2060

== ENCOUNTER 2020-09-27 15:54 | Emergency (ER) | payer MEDICARE, OTHER ==
[2020-09-27] MEDS ORDERED: LORazepam 2 MG/ML VIAL IVP STA (16:46)
--- NOTE | 2020-09-27 17:14 | ED Physician Documentation ---
History of Present Illness - Stated complaint Stated Complaint: HIGH BP - Chief complaint Chief Complaint: Cardiac - History obtained from History obtained from: Patient - History of Present Illness Timing: Today Pain level max: 0 Pain level now: 0 - Additonal information Additional information: 65-year-old female presents to the emergency department stating that she noticed her blood pressure was higher than usual today. She states she became quite concerned about this because she recently had a trabeculectomy for glaucoma and was told to keep her blood pressure down. She states since that time she has developed chest tightness and feels very anxious. Nothing makes it better or worse. Has had hypertension for many years. No neurological deficits. No numbness or tingling. Review of Systems Ten Systems: 10 systems reviewed and negative Constitutional: denies: Fever, Chills Throat: denies: Sore throat Cardiac: reports: Chest pain / pressure. 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: Ovarian cysts : None HEENT: Chronic sinusitis Psych: Eating disorder Musculoskeletal: Osteoarthritis, Osteopenia, Chronic back pain Derm: None - Past Surgical History Past Surgical History: Yes General: Appendectomy, Colonoscopy Ortho: Spine surgery, Other /COMMISSARY HELPER: Other HEENT: Cataracts - Present Medications Home Medications: Ambulatory Orders Medication Instructions Recorded Confirmed Omeprazole 20 mg PO DAILY 09/29/18 10/10/18 Loratadine [Claritin] 1 PRN 10/14/18 hydrALAZINE [Apresoline] 25 mg PO QID #120 tablet 06/05/20 hydrOXYzine pamoate [Hydroxyzine 25 mg PO Q6H PRN #15 tab 07/13/20 Pamoate] - Allergies Allergies/Adverse Reactions: Allergies Allergy/AdvReac Type Severity Reaction Status Date / Time Sulfa (Sulfonamide Allergy Intermediate Hives Verified 09/27/20 15:59 Antibiotics) lisinopril Allergy Unknown Verified 09/27/20 15:59 metoprolol [From Lopressor] Allergy Unknown Verified 09/27/20 15:59 naltrexone Allergy Unknown Verified 09/27/20 15:59 hydrochlorothiazide AdvReac Severe Cramps Verified 09/27/20 15:59 antibiotic Allergy Unknown Uncoded 09/27/20 15:59 - Social History Does the pt smoke?: No Smoking Status: Never smoker Does the pt drink ETOH?: Yes Does the pt have substance abuse?: No - Immunizations Immunizations are current?: Yes PD ED PE NORMAL - Vitals Vital signs reviewed: Yes - General General: Alert and oriented X 3, No acute distress - HEENT HEENT: Moist mucous membranes - Neck Neck: Supple, no meningeal sign - Cardiac Cardiac: RRR, Strong equal pulses - Respiratory Respiratory: No respiratory distress, Clear bilaterally - Abdomen Abdomen: Soft, Non tender, Non distended - Derm Derm: Warm and dry - Extremities Extremities: No edema - Neuro Neuro: Alert and oriented X 3 - Psych Psych: Other (Is a very anxious.) Results - Vitals Vitals: Vital Signs - 24 hr 09/27/20 09/27/20 09/27/20 15:59 17:17 17:30 Temperature 36.6 C Heart Rate 68 74 72 Respiratory 16 20 22 Rate Blood Pressure 194/100 H 171/100 H 155/96 H O2 Saturation 100 09/27/20 09/27/20 18:00 18:44 Temperature 97.8 C H Heart Rate 75 82 Respiratory 15 18 Rate Blood Pressure 146/100 H 153/102 H O2 Saturation 100 Oxygen O2 Source Room air - EKG (time done) 1613 Rate: Rate (enter#) (86) Rhythm: NSR, Other (PVC) Severance: Normal Intervals: Normal [place] QRS: Normal Ischemia: Normal ST segments - Labs Labs: Laboratory Tests 09/27/20 09/27/20 09/27/20 16:53 16:53 17:40 WBC 5.6 RBC 4.09 L Hgb 12.9 Hct 39.8 MCV 97.3 MCH 31.5 H MCHC 32.4 RDW 12.8 Plt Count 259 MPV 11.0 H Neut # (Auto) 3.4 Lymph # (Auto) 1.5 Clarke # (Auto) 0.5 Eos # (Auto) 0.1 Baso # (Auto) 0.1 Absolute Nucleated RBC 0.00 Nucleated RBC % 0.0 Sodium 130 L Potassium 3.1 L Chloride 94 L Carbon Dioxide 24 Anion Gap 12.0 BUN 11 Creatinine 0.5 Estimated GFR (MDRD) 123 Glucose 104 H Calcium 9.6 Total Bilirubin 0.9 AST 15 ALT 31 Alkaline Phosphatase 57 Troponin I High Sens 3.9 Total Protein 7.6 Albumin 5.1 Globulin 2.5 Albumin/Globulin Ratio 2.0 Lipase 37 - Rads (name of study) cxr Radiology: Prelim report reviewed, EMP read contemporaneously, See rad report (No acute cardiopulmonary disease. ) PD MEDICAL DECISION MAKING - ED course Complexity details: reviewed old records, reviewed results, re-evaluated patient, considered differential, d/w patient ED course: 65-year-old female presents to the emergency department with hypertension and chest tightness. Both symptoms resolved with a dose of Ativan. No acute findings on EKG, chest x-ray or laboratory testing. Patient feels much better. BP is down to 140 systolic. We will have her follow-up with her doctor for further care. Patient was started on a new antihypertensive medication today, we will have her continue this. Patient counseled regarding signs and symptoms for which I believe and urgent re-evaluation would be necessary. Patient with good understanding of and agreement to plan and is comfortable going home at this time This document was made in part using voice recognition software. While efforts are made to proofread this document, sound alike and grammatical errors may occur. Upon review of her old records, she has many episodes where her blood pressure is over 200. Departure - Departure Disposition: 01 Home, Self Care Clinical Impression: Anxiety Hypertension Qualifiers: Hypertension type: unspecified Qualified Code(s): I10 - Essential (primary) hypertension Condition: Good Instructions: ED HTN Established Follow-Up: Bebeto Lyons DO [Primary Care Provider] - Within 1 week Comments: Your blood pressure has decreased on its own today down to 146/100. Follow-up with your doctor for further care. Your testing does not show any acute abnormalities other than a mildly low sodium and a mildly low potassium. Continue your current medications. Return if you worsen Discharge Date/Time: 09/27/20 19:22
[2020-09-27 17:17] LABS: BASOPHILS # (AUTO) 0.1 10^3/uL (0.0-0.1); BASOPHILS % (AUTO) 0.9 %; EOSINOPHILS # (AUTO) 0.1 10^3/uL (0.0-0.7); EOSINOPHILS % (AUTO) 2.5 %; HCT - HEMATOCRIT 39.8 % (37.0-47.0); HGB - HEMOGLOBIN 12.9 g/dL (12.0-16.0); LYMPHOCYTES # (AUTO) 1.5 10^3/uL (1.5-3.5); LYMPHOCYTES % (AUTO) 26.9 %; MEAN CORPUSCULAR HEMOGLOBIN 31.5 pg (27.0-31.0); MEAN CORPUSCULAR HGB CONC 32.4 g/dL (32.0-36.0); MEAN CORPUSCULAR VOLUME 97.3 fL (81.0-99.0); MONOCYTES # (AUTO) 0.5 10^3/uL (0.0-1.0); MONOCYTES % (AUTO) 8.4 %; NEUTROPHILS # (AUTO) 3.4 10^3/uL (1.5-6.6); NEUTROPHILS % (AUTO) 60.9 %; PLT - PLATELET COUNT 259 10^3/uL (130-450); RED BLOOD COUNT 4.09 10^6/uL (4.20-5.40); RED CELL DISTRIBUTION WIDTH 12.8 % (12.0-15.0); WHITE BLOOD COUNT 5.6 x10^3/uL (4.8-10.8)
--- NOTE | 2020-09-27 17:29 | XRAY Report ---
PROCEDURE: Chest 1 View X-Ray INDICATIONS: Chest Pain TECHNIQUE: One view of the chest was acquired. COMPARISON: 07/13/2020 FINDINGS: Surgical changes and devices: None. Lungs and pleura: No pleural effusions or pneumothorax. Lungs are clear. Mediastinum: Mediastinal contours appear normal. Heart size is normal. Bones and chest wall: No suspicious bony lesions. Overlying soft tissues appear unremarkable. IMPRESSION: No acute cardiopulmonary disease. Reviewed by: Lalita Vaughan MD on 09/27/2020 5:28 PM PDT Approved by: Lalita Vaughan MD on 09/27/2020 5:28 PM PDT Station ID: [id number]
[2020-09-27 18:04] LABS: ALBUMIN 5.1 g/dL (3.2-5.5); BILIRUBIN,TOTAL 0.9 mg/dL (0.2-1.0); CALCIUM 9.6 mg/dL (8.5-10.3); CREATININE 0.5 mg/dL (0.4-1.0); POTASSIUM 3.1 mmol/L (3.5-5.0); TOTAL PROTEIN 7.6 g/dL (6.7-8.2)
[2020-09-27 18:44] VITALS: BP 153/102
== END 2020-09-27 19:22 | disposition home or self-care (01) ==
LOC: ED 15:54
DX: I10 Essential (primary) hypertension (principal); F41.9 Anxiety disorder, unspecified; R07.89 Other chest pain; I49.3 Ventricular premature depolarization
CPT/HCPCS: 36415; 71045; 80053; 83690; 84484; 85025; 93005; 96374; 99284; 99285; J2060

== ENCOUNTER 2020-10-10 15:59 | Emergency (ER) | payer MEDICARE, OTHER ==
--- OUTSIDE RECORDS SUMMARY | 2020-10-10 16:03 | EXTERNAL MEDICAL SUMMARY RPT | Continuity of Care Document ---
:1955 Demographics Phone Unavailable Preferred Language Unknown Marital Status Unknown Jehovah'S Witness Affiliation Unknown Race Unknown Ethnic Group Unknown Author Organization [facility] Address [address] [phone] Phone Allergies Encounters Medications Problems date description facility [id number] sob,dizziness,headache [facility] [id number] Hypertension [facility] [id number] Headache (Adult - New Onset Or [facility] Symptoms) [id number] Dizziness [facility] Results
--- OUTSIDE RECORDS SUMMARY | 2020-10-10 16:06 | EXTERNAL MEDICAL SUMMARY RPT | Continuity of Care Document ---
:1955 Demographics Phone Unavailable Preferred Language Unknown Marital Status Unknown Yarsani Affiliation Unknown Race Unknown Ethnic Group Unknown Author Organization [facility] Address [address] [phone] Phone Allergies Encounters Medications Problems date description facility [id number] sob,dizziness,headache [facility] [id number] Hypertension [facility] [id number] Headache (Adult - New Onset Or [facility] Symptoms) [id number] Dizziness [facility] Results
[2020-10-10] MEDS ORDERED: LORazepam 2 MG/ML VIAL IVP STA (16:55)
[2020-10-10 17:17] LABS: BASOPHILS % (AUTO) 0.9 %; EOSINOPHILS # (AUTO) 0.2 10^3/uL (0.0-0.7); EOSINOPHILS % (AUTO) 3.8 %; HCT - HEMATOCRIT 34.3 % (37.0-47.0); HGB - HEMOGLOBIN 11.9 g/dL (12.0-16.0); LYMPHOCYTES % (AUTO) 23.2 %; MEAN CORPUSCULAR HEMOGLOBIN 32.2 pg (27.0-31.0); MEAN CORPUSCULAR HGB CONC 34.7 g/dL (32.0-36.0); MEAN CORPUSCULAR VOLUME 92.7 fL (81.0-99.0); MEAN PLATELET VOLUME 9.6 fL (7.9-10.8); MONOCYTES # (AUTO) 0.5 10^3/uL (0.0-1.0); MONOCYTES % (AUTO) 12.2 %; NEUTROPHILS # (AUTO) 2.7 10^3/uL (1.5-6.6); NEUTROPHILS % (AUTO) 59.7 %; PLT - PLATELET COUNT 308 10^3/uL (130-450); RED CELL DISTRIBUTION WIDTH 12.5 % (12.0-15.0); WHITE BLOOD COUNT 4.4 x10^3/uL (4.8-10.8)
--- NOTE | 2020-10-10 17:25 | XRAY Report ---
PROCEDURE: Chest 1 View X-Ray INDICATIONS: Chest Pain TECHNIQUE: One view of the chest was acquired. COMPARISON: 07/28/2020, 07/13/2020 FINDINGS: Surgical changes and devices: None. Lungs and pleura: No pleural effusions or pneumothorax. Lungs are clear. Mediastinum: Mediastinal contours appear normal. Heart size is normal. Bones and chest wall: No suspicious bony lesions. S-shaped scoliotic curvature is incidentally note d. Age-appropriate degenerative changes are seen. Overlying soft tissues appear unremarkable. IMPRESSION: No acute cardiopulmonary process is seen. Reviewed by: Merrill Shearer MD on 10/10/2020 4:24 PM AKEUNICE Approved by: Merrill Shearer MD on 10/10/2020 4:24 PM AKEUNICE Station ID: [id number]
[2020-10-10 17:34] LABS: BILIRUBIN,TOTAL 0.8 mg/dL (0.2-1.0); CALCIUM 9.6 mg/dL (8.5-10.3); CREATININE 0.6 mg/dL (0.4-1.0); POTASSIUM 3.3 mmol/L (3.5-5.0); TOTAL PROTEIN 7.5 g/dL (6.7-8.2)
[2020-10-10 18:12] LABS: BILIRUBIN,URINE NEGATIVE (NEGATIVE); GLUCOSE, URINE (UA) NEGATIVE (NEGATIVE); KETONES,URINE (UA) NEGATIVE (NEGATIVE); LEUKOCYTE ESTERASE, URINE NEGATIVE (NEGATIVE); NITRITE,URINE NEGATIVE (NEGATIVE); OCCULT BLOOD,URINE NEGATIVE (NEGATIVE); PROTEIN,URINE NEGATIVE (NEGATIVE); UROBILINOGEN,URINE 0.2 (NORMAL) E.U./dL (NORMAL)
[2020-10-10 18:15] LABS: CLARITY,URINE CLEAR (CLEAR)
--- NOTE | 2020-10-10 19:03 | ED Physician Documentation ---
History of Present Illness - Stated complaint Stated Complaint: SOA, BODY NUMBNESS - Chief complaint Chief Complaint: General - History obtained from History obtained from: Patient - History of Present Illness Timing: Today Pain level max: 0 Pain level now: 0 - Additonal information Additional information: 65-year-old female presents to the emergency department complaining of intermittent feelings of dyspnea, tingling in her hands, rapid breathing and hypertension. She states is been ongoing issue for her. She states that she had 2 deaths in the family last year. 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 She states that she used to drink regularly but has quit alcohol. She was seen at [facility] 2 days ago for same. Had CT angiograms of the head and neck performed as well as an MRI of the brain. No chest pain. She states that she currently does feel anxious. She states she does not feel anxious at home unless her blood pressure is increasing then she becomes anxious. Has had a recent eye surgery as well. No vision changes currently. Review of Systems Ten Systems: 10 systems reviewed and negative Constitutional: denies: Fever, Chills Ears: denies: Ear pain Nose: denies: Rhinorrhea / runny nose, Congestion Throat: denies: Sore throat Cardiac: reports: Palpitations. denies: Chest pain / pressure Respiratory: denies: Dyspnea, Cough, Wheezing GI: denies: Vomiting, Diarrhea Skin: denies: Rash Musculoskeletal: denies: Neck pain, Back pain Neurologic: denies: Headache PD PAST MEDICAL HISTORY - Past Medical History Cardiovascular: Hypertension Respiratory: None Neuro: None Endocrine/Autoimmune: None GI: GERD, Colon polyps, Diverticulitis, Other IMMUNOPATHOLOGIST: Ovarian cysts : None HEENT: Chronic sinusitis Psych: Eating disorder Musculoskeletal: Osteoarthritis, Osteopenia, Chronic back pain Derm: None - Past Surgical History Past Surgical History: Yes General: Appendectomy, Colonoscopy Ortho: Spine surgery, Other /IMMUNOPATHOLOGIST: Other HEENT: Cataracts - Present Medications Home Medications: Ambulatory Orders Medication Instructions Recorded Confirmed Omeprazole 20 mg PO DAILY 09/29/18 10/10/18 Loratadine [Claritin] 1 PRN 10/14/18 hydrALAZINE [Apresoline] 25 mg PO QID #120 tablet 06/05/20 hydrOXYzine pamoate [Hydroxyzine 25 mg PO Q6H PRN #15 tab 07/13/20 Pamoate] - Allergies Allergies/Adverse Reactions: Allergies Allergy/AdvReac Type Severity Reaction Status Date / Time Sulfa (Sulfonamide Allergy Intermediate Hives Verified 09/27/20 15:59 Antibiotics) lisinopril Allergy Unknown Verified 09/27/20 15:59 metoprolol [From Lopressor] Allergy Unknown Verified 09/27/20 15:59 naltrexone Allergy Unknown Verified 09/27/20 15:59 hydrochlorothiazide AdvReac Severe Cramps Verified 09/27/20 15:59 antibiotic Allergy Unknown Uncoded 09/27/20 15:59 - Social History Does the pt smoke?: No Smoking Status: Never smoker Does the pt drink ETOH?: Yes Does the pt have substance abuse?: No - Immunizations Immunizations are current?: Yes PD ED PE NORMAL - Vitals Vital signs reviewed: Yes - General General: Alert and oriented X 3, No acute distress, Well developed/nourished, Other (Appears quite anxious) - HEENT HEENT: PERRL, Moist mucous membranes - Neck Neck: Supple, no meningeal sign - Cardiac Cardiac: RRR, No murmur, Strong equal pulses - Respiratory Respiratory: No respiratory distress, Clear bilaterally - Abdomen Abdomen: Normal bowel sounds, Soft, Non tender, Non distended - Back Back: No CVA TTP, No spinal TTP - Derm Derm: Warm and dry - Extremities Extremities: No edema, No calf tenderness / cord - Neuro Neuro: Alert and oriented X 3, 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, No motor deficit, No sensory deficit, Normal speech - Psych Psych: Normal mood, Normal affect Results - Vitals Vitals: Vital Signs - 24 hr 10/10/20 10/10/20 10/10/20 16:25 18:20 19:03 Temperature 36.6 C Heart Rate 84 67 72 Respiratory 18 19 15 Rate Blood Pressure 153/79 H 119/76 125/79 O2 Saturation 100 99 98 Oxygen O2 Source Room air - Labs Labs: Laboratory Tests 10/10/20 10/10/20 10/10/20 16:30 17:05 17:05 WBC 4.4 L RBC 3.70 L Hgb 11.9 L Hct 34.3 L MCV 92.7 MCH 32.2 H MCHC 34.7 RDW 12.5 Plt Count 308 MPV 9.6 Neut # (Auto) 2.7 Lymph # (Auto) 1.0 L [place] # (Auto) 0.5 Eos # (Auto) 0.2 Baso # (Auto) 0.0 Absolute Nucleated RBC 0.00 Nucleated RBC % 0.0 Sodium 132 L Potassium 3.3 L Chloride 97 L Carbon Dioxide 26 Anion Gap 9.0 BUN 16 Creatinine 0.6 Estimated GFR (MDRD) 100 Glucose 107 H Calcium 9.6 Total Bilirubin 0.8 AST 22 ALT 34 Alkaline Phosphatase 65 Troponin I High Sens Total Protein 7.5 Albumin 5.0 Globulin 2.5 Albumin/Globulin Ratio 2.0 Lipase 40 Urine Color YELLOW Urine Clarity CLEAR Urine pH 5.0 Ur Specific [place] <=1.005 Urine Protein NEGATIVE Urine Glucose (UA) NEGATIVE Urine Ketones NEGATIVE Urine Occult Blood NEGATIVE Urine Nitrite NEGATIVE Urine Bilirubin NEGATIVE Urine Urobilinogen 0.2 (NORMAL) Ur Leukocyte Esterase NEGATIVE Ur Microscopic Review NOT INDICATED Urine Culture Comments NOT INDICATED Ethyl Alcohol 10/10/20 10/10/20 17:05 17:05 WBC RBC Hgb Hct MCV MCH MCHC RDW Plt Count MPV Neut # (Auto) Lymph # (Auto) [place] # (Auto) Eos # (Auto) Baso # (Auto) Absolute Nucleated RBC Nucleated RBC % Sodium Potassium Chloride Carbon Dioxide Anion Gap BUN Creatinine Estimated GFR (MDRD) Glucose Calcium Total Bilirubin AST ALT Alkaline Phosphatase Troponin I High Sens 4.4 Total Protein Albumin Globulin Albumin/Globulin Ratio Lipase Urine Color Urine Clarity Urine pH Ur Specific [place] Urine Protein Urine Glucose (UA) Urine Ketones Urine Occult Blood Urine Nitrite Urine Bilirubin Urine Urobilinogen Ur Leukocyte Esterase Ur Microscopic Review Urine Culture Comments Ethyl Alcohol < 5.0 PD MEDICAL DECISION MAKING - ED course Complexity details: reviewed old records, reviewed results, re-evaluated patient, considered differential, d/w patient ED course: I was able to obtain and review the records from [facility]. No acute findings here. Patient feels much better after IV Ativan. Blood pressure returned to normal with Ativan. She did receive a prescription for Ativan from [facility] but has not taken it yet. She has had a significant amount of stress in her life over the past 2 years, she would likely benefit from therapy for this, possible cognitive behavioral therapy. We will have her take the Ativan daily at home to see if this helps her until she can see her doctor and discuss this further. Patient also was wearing a clonidine patch but took this off as she was having redness. This could have been contributing to her dizziness as well. Again after Ativan she is not hypertensive here. Patient counseled regarding signs and symptoms for which I believe and urgent re-evaluation would be necessary. Patient with good understanding of and agreement to plan and is comfortable going home at this time This document was made in part using voice recognition software. While efforts are made to proofread this document, sound alike and grammatical errors may occur. Departure - Departure Disposition: Home, Self Care Clinical Impression: Anxiety Hypertension Qualifiers: Hypertension type: unspecified Qualified Code(s): I10 - Essential (primary) hypertension Condition: Good Instructions: ED Stress React, ED HTN Established Follow-Up: Bebeto Lyons DO [Primary Care Provider] - Within 1 week Comments: Follow up with your doctor for further care. You have had a lot of stress over the past 2 years. You may be having anxiety that is contributing to your symptoms. You would likely benefit from cognitive behavioral therapy. You can discuss this with Dr. Lyons. You can use the Ativan as needed that was prescribed to you by Radha this weekend. Return if you worsen Discharge Date/Time: 10/10/20 19:17
[2020-10-10 19:04] VITALS: BP 125/79
== END 2020-10-10 19:17 | disposition home or self-care (01) ==
LOC: ED 15:59
DX: F41.9 Anxiety disorder, unspecified (principal); F43.9 Reaction to severe stress, unspecified; I10 Essential (primary) hypertension
CPT/HCPCS: 36415; 71045; 80053; 81003; 83690; 84484; 85025; 93005; 96374; 99284; G0480; J2060; 80320; 81001; 87086

== ENCOUNTER 2020-10-22 12:35 | Emergency (ER) | payer MEDICARE, OTHER ==
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
--- NOTE | 2020-10-22 13:28 | XRAY Report ---
PROCEDURE: Foot 3 View RT INDICATIONS: Trauma TECHNIQUE: 3 views of the foot were acquired. COMPARISON: None FINDINGS: Bones: Cortical irregularity and linear lucency through base of second through fourth metatarsal bone s are seen suggestive of nondisplaced fractures. No other fracture or dislocation is seen. Midfoot an d forefoot joint osteoarthritic changes are noted.. No suspicious bony lesions. Soft tissues: No tibiotalar joint effusion. Achilles tendon appears normal. IMPRESSION: Finding is consistent with nondisplaced or minimally displaced fractures through second, third and fo urth metatarsal bases. Reviewed by: Suraj Brizuela MD on 10/22/2020 1:27 PM PDT Approved by: Suraj Brizuela MD on 10/22/2020 1:27 PM PDT Station ID: [id number]
--- NOTE | 2020-10-22 13:29 | XRAY Report ---
PROCEDURE: Chest 1 View X-Ray INDICATIONS: Chest pain TECHNIQUE: One view of the chest was acquired. COMPARISON: 10/10/2020 FINDINGS: Surgical changes and devices: None. Lungs and pleura: No pleural effusions or pneumothorax. Lungs are clear. Mediastinum: Mediastinal contours appear normal. Heart size is normal. Bones and chest wall: No suspicious bony lesions. Overlying soft tissues appear unremarkable. IMPRESSION: No acute cardiopulmonary pathology. Reviewed by: Suraj Brizuela MD on 10/22/2020 1:27 PM PDT Approved by: Suraj Brizuela MD on 10/22/2020 1:27 PM PDT Station ID: [id number]
[2020-10-22] MEDS ORDERED: BACITRACIN ZINC OINT 1 PACKET TOP STA (13:35)
--- NOTE | 2020-10-22 13:35 | ED Physician Documentation ---
PD HPI SYNCOPE - Stated complaint Stated Complaint: GLF/FOOT PX - Chief complaint Chief Complaint: Neuro - History obtained from History obtained from: Patient - Additional information Additional information: 65-year-old woman has been having dizzy spells recently. She has a history of hyponatremia, elevated blood pressures. She has been seeing a community health consultant. She was in her usual state of health today which is quite anxious and had just gotten out of the shower. She had an apparent syncopal episode in the bathroom. She has a small cut on the right eyebrow. No headache. She has a lot of foot pain. She does not know the exact mechanism of how that happened. She is a recovering alcoholic, last drink was about 6 months ago. Review of Systems Ten Systems: 10 systems reviewed and negative Constitutional: reports: Reviewed and negative Nose: reports: Reviewed and negative Throat: reports: Reviewed and negative Cardiac: reports: Reviewed and negative PD PAST MEDICAL HISTORY - Past Medical History Cardiovascular: Hypertension Respiratory: None Neuro: None Endocrine/Autoimmune: None GI: GERD, Colon polyps, Diverticulitis, Other SOUND MIXER: Ovarian cysts : None HEENT: Chronic sinusitis Psych: Eating disorder Musculoskeletal: Osteoarthritis, Osteopenia, Chronic back pain Derm: None - Past Surgical History Past Surgical History: Yes General: Appendectomy, Colonoscopy Ortho: Spine surgery, Other /SOUND MIXER: Other HEENT: Cataracts - Present Medications Home Medications: Ambulatory Orders Medication Instructions Recorded Confirmed Loratadine [Claritin] 1 tab PO PRN PRN 10/14/18 10/22/20 hydrALAZINE [Apresoline] 25 mg PO QID #120 tablet 06/05/20 10/22/20 HYDROcod/ACETAM 5/325 [[place] 5/325] 1 - 2 tab PO Q6H PRN #15 tablet 10/22/20 Knee Scooter 1 unit TD ONCE #1 10/22/20 diltiaZEM CD [Cardizem Cd] 120 mg PO DAILY 10/22/20 10/22/20 - Allergies Allergies/Adverse Reactions: Allergies Allergy/AdvReac Type Severity Reaction Status Date / Time Sulfa (Sulfonamide Allergy Intermediate Hives Verified 10/22/20 12:40 Antibiotics) lisinopril Allergy Unknown Verified 10/22/20 12:40 metoprolol [From Lopressor] Allergy Unknown Verified 10/22/20 12:40 naltrexone Allergy Unknown Verified 10/22/20 12:40 hydrochlorothiazide AdvReac Severe Cramps Verified 10/22/20 12:40 antibiotic Allergy Unknown Uncoded 10/22/20 12:40 - Social History Does the pt smoke?: No Smoking Status: Never smoker Does the pt drink ETOH?: Yes Does the pt have substance abuse?: No - Immunizations Immunizations are current?: Yes PD ED PE NORMAL - Vitals Vital signs reviewed: Yes - General General: Alert and oriented X 3, No acute distress - HEENT HEENT: PERRL, EOMI, Other (Small laceration measuring may be just 2 or 3 mm in the right eyebrow not gaping.) - Neck Neck: Supple, no meningeal sign, No bony TTP - Cardiac Cardiac: RRR, No murmur - Respiratory Respiratory: No respiratory distress, Clear bilaterally - Abdomen Abdomen: Normal bowel sounds, Soft, Non tender - Back Back: No CVA TTP, No spinal TTP - Derm Derm: Normal color, Warm and dry - Extremities Extremities: No edema, No calf tenderness / cord, Other (Tender over the top of the foot proximally on the right side. 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, No motor deficit, No sensory deficit, Normal speech - Psych Psych: Normal mood, Normal affect Results - Vitals Vitals: Vital Signs - 24 hr 10/22/20 10/22/20 12:43 14:50 Temperature 36.4 C L Heart Rate 78 69 Respiratory 19 18 Rate Blood Pressure 111/66 158/98 H O2 Saturation 100 100 Oxygen O2 Source Room air - EKG (time done) 1250 Rate: Rate (enter#) (73) Rhythm: NSR [place]: Normal Intervals: Normal [place] QRS: Normal Ischemia: Normal ST segments Computer interpretation: Agree with computer - Labs Labs: Laboratory Tests 10/22/20 10/22/20 10/22/20 13:53 13:53 13:53 WBC 8.2 RBC 3.56 L Hgb 11.3 L Hct 33.3 L MCV 93.5 MCH 31.7 H MCHC 33.9 RDW 12.5 Plt Count 323 MPV 9.8 Neut # (Auto) 6.8 H Lymph # (Auto) 0.8 L [place] # (Auto) 0.5 Eos # (Auto) 0.1 Baso # (Auto) 0.1 Absolute Nucleated RBC 0.00 Nucleated RBC % 0.0 Sodium 130 L Potassium 3.4 L Chloride 95 L Carbon Dioxide 27 Anion Gap 8.0 BUN 12 Creatinine 0.6 Estimated GFR (MDRD) 100 Glucose 116 H Calcium 9.1 Phosphorus 3.2 Total Bilirubin 0.8 AST 14 ALT 30 Alkaline Phosphatase 58 Troponin I High Sens 4.3 Total Protein 7.3 Albumin 4.8 Globulin 2.5 Albumin/Globulin Ratio 1.9 Lipase 39 TSH Free T4 Free T3 pg/mL PTH Intact 10/22/20 13:53 WBC RBC Hgb Hct MCV MCH MCHC RDW Plt Count MPV Neut # (Auto) Lymph # (Auto) [place] # (Auto) Eos # (Auto) Baso # (Auto) Absolute Nucleated RBC Nucleated RBC % Sodium Potassium Chloride Carbon Dioxide Anion Gap BUN Creatinine Estimated GFR (MDRD) Glucose Calcium Phosphorus Total Bilirubin AST ALT Alkaline Phosphatase Troponin I High Sens Total Protein Albumin Globulin Albumin/Globulin Ratio Lipase TSH 1.99 Free T4 0.92 Free T3 pg/mL 2.94 PTH Intact 52 - Rads (name of study) Single view chest x-ray Radiology: EMP read contemporaneously (Normal) zThree-view x-ray right foot Radiology: EMP read contemporaneously (Nondisplaced fractures of the second third and fourth metatarsal bases) PD MEDICAL DECISION MAKING - ED course ED course: 65-year-old woman presents after a syncopal episode with injury fracturing her right foot. This was splinted. Her EKG is unremarkable. No ectopy or arrhythmia on the monitor while here. Offered observation for continued cardiac monitoring which she declined. We did a plethora of labs which she had orders for from the outpatient realm as ordered by a variety of specialists and to prevent excessive blood draws these were added onto the emergency department samples. Departure - Departure Disposition: 01 Home, Self Care Clinical Impression: Syncope, Foot fracture, right, Hyponatremia Condition: Good Record reviewed to determine appropriate education?: Yes Instructions: ED Crutch Walking, ED Fx Foot, ED Fainting Unkn Cause Follow-Up: Vinh Currie MD [Provider Admit Priv/Credential] - Prescriptions: Knee Scooter 1 unit TD ONCE #1 HYDROcod/ACETAM 5/325 [[place] 5/325] 1 - 2 tab PO Q6H PRN #15 tablet PRN Reason: Pain Comments: You do have several send out blood test still pending. These were the ones requested by your specialist. The easiest way to get them is to go to the hospital website at [email or web address], click on the my [facility] tab and sign up for the patient portal. Return for new or worsening symptoms. Follow-up with the orthopedist within the week, call Sunday for an appointment. Do not bear weight on the leg until advised you may do so by the orthopedist. Follow-up with your various specialists as planned/scheduled. Discharge Date/Time: 10/22/20 16:10
[2020-10-22] MEDS ORDERED: LORazepam 1 MG TABLET PO STA (14:02)
[2020-10-22 14:13] LABS: BASOPHILS # (AUTO) 0.1 10^3/uL (0.0-0.1); BASOPHILS % (AUTO) 0.7 %; EOSINOPHILS # (AUTO) 0.1 10^3/uL (0.0-0.7); EOSINOPHILS % (AUTO) 0.7 %; HCT - HEMATOCRIT 33.3 % (37.0-47.0); HGB - HEMOGLOBIN 11.3 g/dL (12.0-16.0); LYMPHOCYTES # (AUTO) 0.8 10^3/uL (1.5-3.5); LYMPHOCYTES % (AUTO) 9.5 %; MEAN CORPUSCULAR HEMOGLOBIN 31.7 pg (27.0-31.0); MEAN CORPUSCULAR HGB CONC 33.9 g/dL (32.0-36.0); MEAN CORPUSCULAR VOLUME 93.5 fL (81.0-99.0); MEAN PLATELET VOLUME 9.8 fL (7.9-10.8); MONOCYTES # (AUTO) 0.5 10^3/uL (0.0-1.0); MONOCYTES % (AUTO) 5.9 %; NEUTROPHILS # (AUTO) 6.8 10^3/uL (1.5-6.6); PLT - PLATELET COUNT 323 10^3/uL (130-450); RED BLOOD COUNT 3.56 10^6/uL (4.20-5.40); RED CELL DISTRIBUTION WIDTH 12.5 % (12.0-15.0); WHITE BLOOD COUNT 8.2 x10^3/uL (4.8-10.8)
[2020-10-22 14:26] LABS: ALBUMIN 4.8 g/dL (3.2-5.5); ALBUMIN/GLOBULIN RATIO 1.9 (1.0-2.2); BILIRUBIN,TOTAL 0.8 mg/dL (0.2-1.0); CALCIUM 9.1 mg/dL (8.5-10.3); CREATININE 0.6 mg/dL (0.4-1.0); PHOSPHORUS 3.2 mg/dL (2.5-4.6); POTASSIUM 3.4 mmol/L (3.5-5.0); TOTAL PROTEIN 7.3 g/dL (6.7-8.2)
[2020-10-22 14:43] LABS: THYROID STIMULATING HORMONE 1.99 uIU/mL (0.34-5.60)
[2020-10-22 14:44] LABS: FREE T3 2.94 pg/mL (2.5-3.9)
[2020-10-22 14:45] LABS: FREE T4 (FREE THYROXINE) 0.92 ng/dL (0.58-1.64)
[2020-10-22 14:50] VITALS: BP 158/98
[2020-10-22] MEDS ORDERED: HYDROcod/ACETAM 5/325 MG TABLET PO STA (16:03)
[2020-10-26 15:17] LABS: ALPHA 1 GLOBULIN 0.3 g/dL (0.2-0.3); ALPHA 2 GLOBULIN 0.7 g/dL (0.5-0.9); BETA 1 GLOBULIN 0.5 g/dL (0.4-0.6); BETA 2 GLOBULIN 0.3 g/dL (0.2-0.5); GAMMA GLOBULIN 0.7 g/dL (0.8-1.7)
== END 2020-10-22 16:10 | disposition home or self-care (01) ==
LOC: ED 12:35
DX: R55 Syncope and collapse (principal); R42 Dizziness and giddiness; S92.324A Nondisplaced fracture of second metatarsal bone, right foot, initial encounter for closed fracture; S92.334A Nondisplaced fracture of third metatarsal bone, right foot, initial encounter for closed fracture; S92.344A Nondisplaced fracture of fourth metatarsal bone, right foot, initial encounter for closed fracture; S01.111A Laceration without foreign body of right eyelid and periocular area, initial encounter; W18.30XA Fall on same level, unspecified, initial encounter; Y92.002 Bathroom of unspecified non-institutional (private) residence as the place of occurrence of the external cause; E87.1 Hypo-osmolality and hyponatremia; I10 Essential (primary) hypertension
CPT/HCPCS: 29515; 36415; 71045; 73630; 80053; 81599; 82306; 83690; 83930; 83970; 84100; 84155; 84165; 84439; 84443; 84481; 84484; 85025; 93005; 99284; A9270; J8499

== ENCOUNTER 2020-10-23 12:46 | Emergency (ER) | payer MEDICARE, OTHER ==
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
--- NOTE | 2020-10-23 14:00 | ED Physician Documentation ---
History of Present Illness - Stated complaint Stated Complaint: SEN/KNEE PX - Chief complaint Chief Complaint: Ext Problem - History obtained from History obtained from: Patient - History of Present Illness Timing: Yesterday - Additonal information Additional information: 65-year-old female who has been having dizzy spells had a fall yesterday and she broke her right foot she was seen here in the emergency department she is attended today by Dr. Mixon and she is placed into a posterior splint for her fracture. She has come back to the emergency department today with complaints of pain to her calf and knee pain especially if she bends her knee all the way and she has begun to develop some pain in the left lower quadrant and this is been worse since she is arrived to the emergency department she is got an emesis bag now she has had diverticulitis previously and she is concerned that this may be diverticulitis that is causing her this undue pain in the left lower quadrant. Review of Systems Constitutional: denies: Fever Eyes: denies: Decreased vision Ears: denies: Ear pain, Drainage/discharge Nose: denies: Congestion Throat: denies: Sore throat Cardiac: denies: Chest pain / pressure, Palpitations Respiratory: denies: Dyspnea, Cough GI: reports: Abdominal Pain, Nausea. denies: Vomiting, Constipation, Diarrhea : denies: Dysuria Musculoskeletal: reports: Extremity pain, Joint pain. 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: Ovarian cysts : None HEENT: Chronic sinusitis Psych: Eating disorder Musculoskeletal: Osteoarthritis, Osteopenia, Chronic back pain Derm: None - Past Surgical History Past Surgical History: Yes General: Appendectomy, Colonoscopy Ortho: Spine surgery, Other /JUNIOR ACCOUNT EXECUTIVE: Other HEENT: Cataracts - Present Medications Home Medications: Ambulatory Orders Medication Instructions Recorded Confirmed Loratadine [Claritin] 1 tab PO PRN PRN 10/14/18 10/22/20 hydrALAZINE [Apresoline] 25 mg PO QID #120 tablet 06/05/20 10/22/20 HYDROcod/ACETAM 5/325 [[place] 5/325] 1 - 2 tab PO Q6H PRN #15 tablet 10/22/20 Knee Scooter 1 unit TD ONCE #1 10/22/20 diltiaZEM CD [Cardizem Cd] 120 mg PO DAILY 10/22/20 10/22/20 - Allergies Allergies/Adverse Reactions: Allergies Allergy/AdvReac Type Severity Reaction Status Date / Time Sulfa (Sulfonamide Allergy Intermediate Hives Verified 10/22/20 12:40 Antibiotics) lisinopril Allergy Unknown Verified 10/22/20 12:40 metoprolol [From Lopressor] Allergy Unknown Verified 10/22/20 12:40 naltrexone Allergy Unknown Verified 10/22/20 12:40 hydrochlorothiazide AdvReac Severe Cramps Verified 10/22/20 12:40 antibiotic Allergy Unknown Uncoded 10/22/20 12:40 - Social History Does the pt smoke?: No Smoking Status: Never smoker Does the pt drink ETOH?: Yes Does the pt have substance abuse?: No - Immunizations Immunizations are current?: Yes PD ED PE NORMAL - Vitals Vital signs reviewed: Yes (Hypertensive) - General General: Alert and oriented X 3, No acute distress, Well developed/nourished - HEENT HEENT: Atraumatic, PERRL, EOMI - Neck Neck: Supple, no meningeal sign, No bony TTP - Respiratory Respiratory: No respiratory distress - Abdomen Abdomen: Soft, Non distended, Other (There is specifically left lower quadrant pain to deep palpation of the lateral aspect of the left abdominal wall.) - Back Back: No CVA TTP, No spinal TTP - Derm Derm: Normal color, Warm and dry, No rash - Extremities Extremities: Other (The right lower extremity is in a posterior fiberglass splint. Distal neurovascular components are intact. There is tenderness to the anterior tibia and there is pain with range of motion to the right knee ligaments are stable to testing.) - Neuro Neuro: Alert and oriented X 3, catcher plug 2-12 intact, No motor deficit, No sensory deficit, Normal speech Eye Opening: Spontaneous Motor: Obeys Commands Verbal: Oriented GCS Score: 15 - Psych Psych: Normal mood Results - Vitals Vitals: Vital Signs - 24 hr 10/23/20 10/23/20 12:52 17:20 Temperature 36.6 C 36.6 C Heart Rate 69 65 Respiratory 18 16 Rate Blood Pressure 150/83 H 145/70 H O2 Saturation 100 100 Oxygen O2 Source Room air - Rads (name of study) tib/fib Radiology: Prelim report reviewed (Impression: No fracture.), EMP read indepedently, See rad report knee Radiology: Prelim report reviewed (Impression: No acute osseous abnormalities.), EMP read indepedently, See rad report PD MEDICAL DECISION MAKING - ED course Complexity details: reviewed results, re-evaluated patient, considered differential, d/w patient ED course: 65-year-old female with a recent fall has fractured her foot she is complaining of some additional pain to her calf and knee and she now feels that she may have an issue with diverticulitis. She goes on to give a story about how this was 1 thing that tripped her up here in the hospital a number of years ago and she is fearful of this diagnosis. She would like additional diagnostic work done regarding diverticulitis. CT: Imression: 1 fluid and gaseous distention of the stomach and small intestine, as well as proximal colon with air levels. No transitional point is present. The CT findings suggest gastroenteritis and adynamic ileus. Large amount of stool in the colon and rectum suggesting constipation. Diverticulosis. No definitive diverticulitis. Nonvisualization of appendix. Departure - Departure Disposition: 01 Home, Self Care Clinical Impression: Constipation Qualifiers: Constipation type: unspecified constipation type Qualified Code(s): K59.00 - Constipation, unspecified Foot fracture, right Qualifiers: Encounter type: subsequent encounter Fracture type: closed Fracture healing: with routine healing Qualified Code(s): S92.901D - Unspecified fracture of right foot, subsequent encounter for fracture with routine healing Condition: Stable Instructions: ED Constipation, ED Crutch Walking, ED Fx Foot Follow-Up: Bebeto Lyons DO [Primary Care Provider] - Discharge Date/Time: 10/23/20 17:36
[2020-10-23] MEDS ORDERED: IOVERSOL 320 100 ML VIAL IVP ONE ×2 (14:14→15:35)
--- NOTE | 2020-10-23 14:58 | XRAY Report ---
PROCEDURE: Tib/Fib RT INDICATIONS: fall mid tib pain TECHNIQUE: 2 views of the tibia and fibula were acquired. COMPARISON: 4 view right knee. FINDINGS: Bones: No fractures or dislocations. No suspicious bony lesions. Soft tissues: No suspicious soft tissue calcifications or masses. IMPRESSION: No fracture. Reviewed by: Antonio Elizabeth MD on 10/23/2020 2:57 PM PDT Approved by: Antonio Elizabeth MD on 10/23/2020 2:57 PM PDT Station ID: [id number]
--- NOTE | 2020-10-23 14:58 | XRAY Report ---
PROCEDURE: Knee 4 View RT INDICATIONS: fall knee and calf pain foot fx TECHNIQUE: 4 views of the right knee(s) were acquired. COMPARISON: None. FINDINGS: Bones: No fractures or dislocations. No suspicious bony lesions. Mild degenerative joint disease. Soft tissues: No joint effusion. No suspicious soft tissue calcifications. IMPRESSION: No acute osseous abnormalities. Reviewed by: Antonio Elizabeth MD on 10/23/2020 2:57 PM PDT Approved by: Antonio Elizabeth MD on 10/23/2020 2:57 PM PDT Station ID: [id number]
--- NOTE | 2020-10-23 16:23 | CT Report ---
PROCEDURE: Abdomen/Pelvis W INDICATIONS: LLQ pain diverticulitis suspected CONTRAST: IV CONTRAST: Optiray 320 ml: 100 PO CONTRAST: *NO PO CONTRAST TECHNIQUE: After the administration of intravenous contrast, 5 mm thick sections acquired from the diaphragms to the symphysis. 5 mm thick coronal and sagittal reformats were acquired. For radiation dose reducti on, the following was used: automated exposure control, adjustment of mA and/or kV according to morena ent size. COMPARISON: CT abdomen and pelvis with contrast, 08/21/2014. FINDINGS: Image quality: Excellent. ABDOMEN: Lung bases: Lung bases are clear. Heart size is normal. Solid organs: Liver and spleen are normal in size and enhancement. Gallbladder is normal. Biliary system is non dilated. Pancreas enhances normally. No adrenal nodules. Kidneys demonstrate normal size and enhancement, without hydronephrosis. Peritoneum and bowel: Stomach is distended with an air-fluid level. No acute small intestines demons trate mild dilation measuring up to 4.4 cm in diameter. Air-fluid levels are seen scattered in abdome n. A transitional point is not identified. Possible colon is also filled with fluid. There is a large amount of stool in the distal colon and rectum. There are scattered colonic diverticula in sigmoid c olon. The CT findings to suggest diverticulitis. Appendix is not identified. No free fluid or air. Nodes and vessels: No retroperitoneal or mesenteric adenopathy by size criteria. Aorta and inferior vena cava are normal in size. Miscellaneous: No ventral hernias. PELVIS: Genitourinary: Bladder wall thickness is normal. Miscellaneous: No inguinal hernias or adenopathy. Bones: No suspicious bony lesions. No vertebral body compression fractures. Scoliosis and severe d egenerative changes in lumbar spine. IMPRESSION: 1. Fluid and gaseous distention of stomach and small intestine, as well as proximal colon with air le vels. No transitional point is present. The CT findings suggest gastroenteritis and adynamic ileus. 2. Large amount of stool in the colon and rectum suggesting constipation. 3. Diverticulosis. No definitive diverticulitis. 4. Nonvisualization of appendix. Reviewed by: Antonio Elizabeth MD on 10/23/2020 4:22 PM PDT Approved by: Antonio Elizabeth MD on 10/23/2020 4:22 PM PDT Station ID: [id number]
[2020-10-23 17:34] VITALS: BP 145/70
== END 2020-10-23 17:36 | disposition home or self-care (01) ==
LOC: ED 12:46
DX: K59.00 Constipation, unspecified (principal); Z87.19 Personal history of other diseases of the digestive system; M79.661 Pain in right lower leg; M25.561 Pain in right knee; S92.901D Unspecified fracture of right foot, subsequent encounter for fracture with routine healing; W19.XXXD Unspecified fall, subsequent encounter; I10 Essential (primary) hypertension
CPT/HCPCS: 73564; 73590; 74177; 99283; 99284; Q9967

== ENCOUNTER 2020-10-26 08:00 | Outpatient (CLI) | payer MEDICARE, OTHER ==
[2020-10-27 08:57] LABS: CREATININE,URINE 39.1 mg/dL
[2020-10-31 13:36] LABS: METANEPHRINE 77 mcg/24 h (90-315); NORMETANEPHRINE 340 mcg/24 h (122-676); TOTAL VOLUME 2950 mL
== END 2020-10-26 23:59 ==
LOC: LAB.R 08:00
PROVIDERS: ATTEND Internal Medicine Rheumatology
DX: M81.0 Age-related osteoporosis without current pathological fracture (principal); I10 Essential (primary) hypertension
CPT/HCPCS: 82340; 82570; 83835

== ENCOUNTER 2020-11-07 17:59 | Emergency (ER) | payer MEDICARE, OTHER ==
[2020-11-07 18:43] LABS: BILIRUBIN,URINE NEGATIVE (NEGATIVE); GLUCOSE, URINE (UA) NEGATIVE (NEGATIVE); KETONES,URINE (UA) NEGATIVE (NEGATIVE); LEUKOCYTE ESTERASE, URINE NEGATIVE (NEGATIVE); NITRITE,URINE NEGATIVE (NEGATIVE); OCCULT BLOOD,URINE NEGATIVE (NEGATIVE); PROTEIN,URINE NEGATIVE (NEGATIVE); UROBILINOGEN,URINE 0.2 (NORMAL) E.U./dL (NORMAL)
[2020-11-07 18:44] LABS: CLARITY,URINE CLEAR (CLEAR)
--- NOTE | 2020-11-07 19:43 | ED Physician Documentation ---
PD HPI NVD - Stated complaint Stated Complaint: SHAKES,FECAL IMPACT, FAST HEART RATE - Chief complaint Chief Complaint: Abd Pain - History obtained from History obtained from: Patient - Additonal information Additional information: 65-year-old woman presents with multiple complaints, the biggest of which is she thinks she has a fecal impaction. Has not had a decent bowel movement in 3 days but has had some small output despite taking laxatives. She has a history of hyponatremia and alcohol abuse in remission. Recently was told she had some adrenal lesions, although note made that she had a CT done 2 weeks ago which did not demonstrate that. She also states she had a recent brain scan showing old stroke. Ancillary complaints include confusion. She feels like she is dizzy especially if she talks. 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: Ovarian cysts : None HEENT: Chronic sinusitis Psych: Eating disorder Musculoskeletal: Osteoarthritis, Osteopenia, Chronic back pain Derm: None - Past Surgical History Past Surgical History: Yes General: Appendectomy, Colonoscopy Ortho: Spine surgery, 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: Other HEENT: Cataracts - Present Medications Home Medications: Ambulatory Orders Medication Instructions Recorded Confirmed Loratadine [Claritin] 1 tab PO PRN PRN 10/14/18 10/22/20 hydrALAZINE [Apresoline] 25 mg PO QID #120 tablet 06/05/20 10/22/20 HYDROcod/ACETAM 5/325 [[place] 5/325] 1 - 2 tab PO Q6H PRN #15 tablet 10/22/20 Knee Scooter 1 unit TD ONCE #1 10/22/20 diltiaZEM CD [Cardizem Cd] 120 mg PO DAILY 10/22/20 10/22/20 LORazepam [Ativan] 1 mg PO TID PRN #12 tablet 11/07/20 - Allergies Allergies/Adverse Reactions: Allergies Allergy/AdvReac Type Severity Reaction Status Date / Time Sulfa (Sulfonamide Allergy Intermediate Hives Verified 11/07/20 18:33 Antibiotics) lisinopril Allergy Unknown Verified 11/07/20 18:33 metoprolol [From Lopressor] Allergy Unknown Verified 11/07/20 18:33 naltrexone Allergy Unknown Verified 11/07/20 18:33 hydrochlorothiazide AdvReac Severe Cramps Verified 11/07/20 18:33 antibiotic Allergy Unknown Uncoded 11/07/20 18:33 - Social History Does the pt smoke?: No Smoking Status: Never smoker Does the pt drink ETOH?: Yes Does the pt have substance abuse?: No - Immunizations Immunizations are current?: Yes PD ED PE NORMAL - Vitals Vital signs reviewed: Yes - General General: Alert and oriented X 3, Other (Quiet voice, poor eye contact) - HEENT HEENT: PERRL, EOMI - Neck Neck: Supple, no meningeal sign, No bony TTP - Cardiac Cardiac: RRR, Other (Frequent extrasystoles corresponding to PVCs on monitor.) - Respiratory Respiratory: No respiratory distress, Clear bilaterally - Abdomen Abdomen: Normal bowel sounds, Soft, Non tender - Rectal Rectal: Other (Done with Tanya RN present and chaperoning: There is no fecal impaction within fingers reach.) - Back Back: No CVA TTP, No spinal TTP - Derm Derm: Normal color, Warm and dry - Extremities Extremities: No edema, No calf tenderness / cord - Neuro Neuro: Alert and oriented X 3, No motor deficit, No sensory deficit, Normal speech Eye Opening: Spontaneous Motor: Obeys Commands Verbal: Oriented GCS Score: 15 Results - Vitals Vitals: Vital Signs - 24 hr 11/07/20 11/07/20 11/07/20 18:24 20:33 22:00 Temperature 36.9 C Heart Rate 82 75 74 Respiratory 18 16 24 Rate Blood Pressure 167/82 H 188/104 H 157/92 H O2 Saturation 98 99 97 11/07/20 22:48 Temperature Heart Rate 91 Respiratory 21 Rate Blood Pressure 152/91 H O2 Saturation Oxygen O2 Source Room air - Labs Labs: Laboratory Tests 11/07/20 11/07/20 11/07/20 18:31 18:31 19:59 WBC 6.0 RBC 3.92 L Hgb 12.4 Hct 35.2 L MCV 89.8 MCH 31.6 H MCHC 35.2 RDW 11.8 L Plt Count 374 MPV 9.5 Neut # (Auto) 3.6 Lymph # (Auto) 1.5 [place] # (Auto) 0.7 Eos # (Auto) 0.2 Baso # (Auto) 0.1 Absolute Nucleated RBC 0.00 Nucleated RBC % 0.0 Sodium Potassium Chloride Carbon Dioxide Anion Gap BUN Creatinine Estimated GFR (MDRD) Glucose Calcium Magnesium Total Bilirubin AST ALT Alkaline Phosphatase Ammonia Total Protein Albumin Globulin Albumin/Globulin Ratio Lipase Urine Color STRAW Urine Clarity CLEAR Urine pH 8.0 H Ur Specific [place] <=1.005 Urine Protein NEGATIVE Urine Glucose (UA) NEGATIVE Urine Ketones NEGATIVE Urine Occult Blood NEGATIVE Urine Nitrite NEGATIVE Urine Bilirubin NEGATIVE Urine Urobilinogen 0.2 (NORMAL) Ur Leukocyte Esterase NEGATIVE Ur Microscopic Review NOT INDICATED Urine Culture Comments NOT INDICATED Urine Opiates Screen NEGATIVE Ur Oxycodone Screen NEGATIVE Urine Methadone Screen NEGATIVE Ur Propoxyphene Screen NEGATIVE Ur Barbiturates Screen NEGATIVE Ur Tricyclics Screen NEGATIVE Ur Phencyclidine Scrn NEGATIVE Ur Amphetamine Screen NEGATIVE U Methamphetamines Scrn NEGATIVE U Benzodiazepines Scrn NEGATIVE Urine Cocaine Screen NEGATIVE U Cannabinoids Screen NEGATIVE 11/07/20 11/07/20 19:59 20:12 WBC RBC Hgb Hct MCV MCH MCHC RDW Plt Count MPV Neut # (Auto) Lymph # (Auto) [place] # (Auto) Eos # (Auto) Baso # (Auto) Absolute Nucleated RBC Nucleated RBC % Sodium 127 L Potassium 3.5 Chloride 91 L Carbon Dioxide 22 Anion Gap 14.0 H BUN 7 Creatinine 0.6 Estimated GFR (MDRD) 100 Glucose 101 H Calcium 10.0 Magnesium 2.0 Total Bilirubin 1.2 H AST 15 ALT 23 Alkaline Phosphatase 75 Ammonia < 10.0 Total Protein 8.1 Albumin 5.4 Globulin 2.7 Albumin/Globulin Ratio 2.0 Lipase 30 Urine Color Urine Clarity Urine pH Ur Specific [place] Urine Protein Urine Glucose (UA) Urine Ketones Urine Occult Blood Urine Nitrite Urine Bilirubin Urine Urobilinogen Ur Leukocyte Esterase Ur Microscopic Review Urine Culture Comments Urine Opiates Screen Ur Oxycodone Screen Urine Methadone Screen Ur Propoxyphene Screen Ur Barbiturates Screen Ur Tricyclics Screen Ur Phencyclidine Scrn Ur Amphetamine Screen U Methamphetamines Scrn U Benzodiazepines Scrn Urine Cocaine Screen U Cannabinoids Screen PD MEDICAL DECISION MAKING - ED course ED course: 65-year-old woman presents with multiple complaints. She feels like she has a fecal impaction, albeit none is present on exam. She feels confused. She has dizziness when she talks. She has been seeing a lot of specialist lately and has pending follow-ups with endocrinology and is doing a dexamethasone suppression test tonight and is seeing a neurologist tomorrow. CT shows air- fluid levels, the radiologist commented this may be due to dysmotility or malabsorption. My suspicion is that they are actually due to the laxatives she was taking. We had a long talk. She is had a long 6 months with medical issues, the worst of which was worsening glaucoma causing decreased vision. She is also had some orthopedic issues and now has been told there might be lesions on her pancreas or adrenals or an endocrine problem and a neurology issue. There is a overlay of anxiety and we had a long talk about this and initially she asked if she might be crazy. I reassured her that I think with everything she has been through last 6 months would be normal to have some level of anxiety and then admits that I had given her a prescription for Ativan sometime ago and it was quite helpful although she is scared to take it because of the po ssibility of addiction. There is no apparent emergency medical condition and she has excellent follow-up. I also discussed with her that she should probably talk with her primary care physician about a counseling referral when things have calm down a bit. Departure - Departure Disposition: 01 Home, Self Care Clinical Impression: Anxiety, Hyponatremia Abdominal pain Qualifiers: Abdominal location: generalized Qualified Code(s): R10.84 - Generalized abdominal pain Condition: Good Record reviewed to determine appropriate education?: Yes Instructions: ED Abdominal Pain Unkn Cause Prescriptions: LORazepam [Ativan] 1 mg PO TID PRN #12 tablet PRN Reason: Anxiety Comments: Follow-up with the neurologist tomorrow as scheduled. Return for new or worsening symptoms. Continue current medications. You can eat a regular diet now, there is no evidence of constipation and there is no reason to be taking laxatives at this juncture. Follow-up with Dr. Lyons and continue with other referrals. Discussed with Dr. Lyons the possibility of a counselor.
[2020-11-07 20:04] LABS: BASOPHILS # (AUTO) 0.1 10^3/uL (0.0-0.1); BASOPHILS % (AUTO) 0.8 %; EOSINOPHILS # (AUTO) 0.2 10^3/uL (0.0-0.7); EOSINOPHILS % (AUTO) 3.2 %; HCT - HEMATOCRIT 35.2 % (37.0-47.0); HGB - HEMOGLOBIN 12.4 g/dL (12.0-16.0); LYMPHOCYTES # (AUTO) 1.5 10^3/uL (1.5-3.5); LYMPHOCYTES % (AUTO) 24.6 %; MEAN CORPUSCULAR HEMOGLOBIN 31.6 pg (27.0-31.0); MEAN CORPUSCULAR HGB CONC 35.2 g/dL (32.0-36.0); MEAN CORPUSCULAR VOLUME 89.8 fL (81.0-99.0); MEAN PLATELET VOLUME 9.5 fL (7.9-10.8); MONOCYTES # (AUTO) 0.7 10^3/uL (0.0-1.0); MONOCYTES % (AUTO) 11.1 %; NEUTROPHILS # (AUTO) 3.6 10^3/uL (1.5-6.6); NEUTROPHILS % (AUTO) 60.1 %; PLT - PLATELET COUNT 374 10^3/uL (130-450); RED BLOOD COUNT 3.92 10^6/uL (4.20-5.40); RED CELL DISTRIBUTION WIDTH 11.8 % (12.0-15.0)
[2020-11-07] MEDS ORDERED: IOVERSOL 320 100 ML VIAL IVP ONE ×2 (20:11→21:20)
[2020-11-07 20:18] LABS: ALBUMIN 5.4 g/dL (3.2-5.5); BILIRUBIN,TOTAL 1.2 mg/dL (0.2-1.0); CREATININE 0.6 mg/dL (0.4-1.0); POTASSIUM 3.5 mmol/L (3.5-5.0); TOTAL PROTEIN 8.1 g/dL (6.7-8.2)
[2020-11-07 20:30] LABS: MUDS CUTOFF CONCENTRATIONS CUTOFF CONC BELOW:
[2020-11-07] MEDS ORDERED: SODIUM CHLORIDE 0.9% 1,000 ML IV STA (20:36)
[2020-11-07 20:42] LABS: AMPHETAMINE SCREEN,URINE NEGATIVE (NEGATIVE); BARBITURATE SCREEN,UR NEGATIVE (NEGATIVE); BENZODIAZEPINES SCREEN, URINE NEGATIVE (NEGATIVE); COCAINE SCREEN URINE NEGATIVE (NEGATIVE); METHADONE SCREEN, URINE NEGATIVE (NEGATIVE); METHAMPHETAMINES SCREEN, URINE NEGATIVE (NEGATIVE); OPIATE SCREEN, URINE NEGATIVE (NEGATIVE); OXYCODONE SCREEN, URINE NEGATIVE (NEGATIVE); PROPOXYPHENE SCREEN, URINE NEGATIVE (NEGATIVE); THC CANNABINOID SCREEN, URINE NEGATIVE (NEGATIVE); TRICYCLIC ANTIDEPRESSANT,URINE NEGATIVE (NEGATIVE)
--- NOTE | 2020-11-07 22:05 | CT Report ---
PROCEDURE: Abdomen/Pelvis W INDICATIONS: abdominal pain CONTRAST: IV CONTRAST: Optiray 320 ml: 100 PO CONTRAST: *NO PO CONTRAST TECHNIQUE: After the administration of a contrast, 5 mm thick sections acquired from the diaphragms to the symph ysis. 5 mm thick coronal and sagittal reformats were acquired. For radiation dose reduction, the fo llowing was used: automated exposure control, adjustment of mA and/or kV according to patient size. COMPARISON: None. FINDINGS: ABDOMEN: Lung bases: Normal Heart:Normal. Liver: Normal. Gallbladder: Normal. Bile ducts: Normal. Pancreas: Normal. Spleen: Normal. Adrenals: Normal. Kidneys and ureters: Normal. Stomach and duodenum: Normal. Bowel: The appendix is not well seen. Suboptimal evaluation of the bowel given positive intra-abdomin al fat. Numerous air-fluid levels are seen throughout the bowel. Other: No free fluid or air. Abdominal nodes: Normal. Aorta: Normal in size. IVC: Normal. Ventral wall: Normal. PELVIS: Bladder: Distended Pelvic nodes: Normal. Inguinal: No hernia. Bones: No vertebral body compression fracture. No suspicious bone lesion. Severe multilevel lumbar sp ondylosis. Facet arthropathy. IMPRESSION: Numerous air-fluid levels seen throughout the bowel raising the possibility of dysmotility, enterocol itis or malabsorption. Elsewhere, no acute abnormality identified. Appendix not well seen due to possibility of intra-abdomi nal fat. It would be difficult to exclude bowel wall thickening in this setting. Reviewed by: Alex Shah MD on 11/07/2020 10:04 PM PDT Approved by: Alex Shah MD on 11/07/2020 10:04 PM PDT Station ID: [id number]
[2020-11-07] MEDS ORDERED: LORazepam 1 MG TABLET PO STA (22:28)
[2020-11-07 22:50] VITALS: BP 152/91
== END 2020-11-07 23:07 | disposition home or self-care (01) ==
LOC: ED 17:59
DX: R10.84 Generalized abdominal pain (principal); F41.9 Anxiety disorder, unspecified; E87.1 Hypo-osmolality and hyponatremia; I49.3 Ventricular premature depolarization; I10 Essential (primary) hypertension; Z86.73 Personal history of transient ischemic attack (TIA), and cerebral infarction without residual deficits; H40.9 Unspecified glaucoma
CPT/HCPCS: 36415; 74177; 80053; 80306; 81003; 82140; 83690; 83735; 85025; 96360; 96361; 99284; J8499; Q9967; 81001; 87086

== ENCOUNTER 2020-12-06 07:45 | Outpatient (CLI) | payer MEDICARE, OTHER ==
--- NOTE | 2020-12-06 11:57 | XRAY Report ---
PROCEDURE: Foot 3 View RT INDICATIONS: NONDISPLACED FX OF SECOND METATARSAL BONE, RIGHT FOOT TECHNIQUE: 3 views of the foot were acquired. COMPARISON: 10/22/2020 FINDINGS: Fractures of the second third and fourth metatarsal bases with healing sclerosis since the prior stud y. No change in alignment. There is diffuse osteopenia. Scattered subchondral sclerosis and spurring. Mild narrowing of the fir st MTP joint space which is grossly unchanged. Diffuse vascular calcifications. Plantar calcaneal spu r. IMPRESSION: Unchanged alignment of healing fractures involving the base of the second third and fourth metatarsal s. Reviewed by: Alex Durand MD on 12/06/2020 11:56 AM PDT Approved by: Alex Durand MD on 12/06/2020 11:56 AM PDT Station ID: [id number]
== END 2020-12-06 23:59 | disposition home or self-care (01) ==
LOC: DI.N 07:45
PROVIDERS: ATTEND Orthopaedic Surgery
DX: S92.324D Nondisplaced fracture of second metatarsal bone, right foot, subsequent encounter for fracture with routine healing (principal); S92.334D Nondisplaced fracture of third metatarsal bone, right foot, subsequent encounter for fracture with routine healing; S92.344D Nondisplaced fracture of fourth metatarsal bone, right foot, subsequent encounter for fracture with routine healing

== ENCOUNTER 2021-02-05 07:00 | Outpatient (CLI) | payer MEDICARE, OTHER ==
[2021-02-05 08:40] LABS: THYROID STIMULATING HORMONE 1.15 uIU/mL (0.34-5.60)
== END 2021-02-05 23:59 | disposition home or self-care (01) ==
LOC: LAB 07:00
PROVIDERS: ATTEND Internal Medicine Endocrinology, Diabetes & Metabolism
DX: D35.02 Benign neoplasm of left adrenal gland (principal)
CPT/HCPCS: 36415; 81599; 82533; 82542; 83835; 84443

== ENCOUNTER 2021-02-06 08:00 | Outpatient (CLI) | payer MEDICARE, OTHER | END 2021-02-06 11:08 | disposition home or self-care (01) | LOC: LAB 08:00 | PROVIDERS: ATTEND Internal Medicine Endocrinology, Diabetes & Metabolism | DX: D35.02 Benign neoplasm of left adrenal gland (principal) | CPT/HCPCS: 81599; 82530 ==

== ENCOUNTER 2021-02-21 07:01 | Outpatient (CLI) | payer MEDICARE, OTHER ==
--- NOTE | 2021-02-21 18:00 | CT Report ---
PROCEDURE: CHEST WO INDICATIONS: PULMONARY NODULES/LESIONS, MULTIPLE, DYSPNEA. By history, groundglass opacities were pr eviously seen on a nuclear medicine scan. TECHNIQUE: Noncontrast 1mm axial images were acquired from the pulmonary apices to the posterior costophrenic an gles. Axial 5 mm soft tissue kernel reconstructions were performed as well as 8 mm axial MIP and cor onal and sagittal 5 mm reformations. For radiation dose reduction, the following was used: automate d exposure control, adjustment of mA and/or kV according to patient size. COMPARISON: Correlation is made with prior abdomen and pelvis CT, 11/07/2020 FINDINGS: Image quality: Excellent. Lungs and pleura: No acute air space opacities. No pleural effusions or pneumothorax. Central and peripheral airways are patent and normal in caliber. Mediastinum: Heart size is normal. No pericardial effusion. No mediastinal adenopathy by size crit eria. Thoracic aorta and central pulmonary arteries are normal in size. Esophagus is normal in adams kimberly. There is a small hiatal hernia. Bones and chest wall: No suspicious bony lesions. No vertebral body compression fractures. There i s accentuated thoracic kyphosis. Relatively prominent lumbar spine degenerative changes are partial ly seen. No axillary or supraclavicular adenopathy by size criteria. The thyroid is normal in size a nd there are no incidental findings. Abdomen: Visualized upper abdominal solid organs and bowel loops appear normal in the absence of con trast. IMPRESSION: No pulmonary nodules are seen. No areas of pulmonary groundglass opacity can be seen. No significant pulmonary abnormality is seen. Incidental note is made of: Small hiatal hernia Accentuated thoracic kyphosis Relatively prominent lumbar spine degenerative changes Reviewed by: Merrill Shearer MD on 02/21/2021 4:59 PM AKEUNICE Approved by: Merrill Shearer MD on 02/21/2021 4:59 PM AKDT Station ID: [id number]
== END 2021-02-21 07:02 | disposition home or self-care (01) ==
LOC: DI 07:01
PROVIDERS: ATTEND Internal Medicine Rheumatology
DX: R91.8 Other nonspecific abnormal finding of lung field (principal); R06.00 Dyspnea, unspecified

== ENCOUNTER 2021-02-23 08:00 | Outpatient (CLI) | payer MEDICARE, OTHER ==
[2021-02-23 12:05] LABS: BASOPHILS # (AUTO) 0.1 10^3/uL (0.0-0.1); EOSINOPHILS # (AUTO) 0.1 10^3/uL (0.0-0.7); EOSINOPHILS % (AUTO) 2.8 %; HCT - HEMATOCRIT 36.2 % (37.0-47.0); HGB - HEMOGLOBIN 12.1 g/dL (12.0-16.0); LYMPHOCYTES # (AUTO) 1.3 10^3/uL (1.5-3.5); LYMPHOCYTES % (AUTO) 25.8 %; MEAN CORPUSCULAR HEMOGLOBIN 31.8 pg (27.0-31.0); MEAN CORPUSCULAR HGB CONC 33.4 g/dL (32.0-36.0); MEAN CORPUSCULAR VOLUME 95.3 fL (81.0-99.0); MEAN PLATELET VOLUME 10.2 fL (7.9-10.8); MONOCYTES # (AUTO) 0.5 10^3/uL (0.0-1.0); MONOCYTES % (AUTO) 10.9 %; NEUTROPHILS # (AUTO) 2.9 10^3/uL (1.5-6.6); NEUTROPHILS % (AUTO) 59.3 %; PLT - PLATELET COUNT 285 10^3/uL (130-450); RED CELL DISTRIBUTION WIDTH 12.7 % (12.0-15.0)
[2021-02-23 13:23] LABS: % IRON SATURATION 26 % (20-50); ALBUMIN/GLOBULIN RATIO 1.9 (1.0-2.2); ALKALINE PHOSPHATASE 71 IU/L (42-121); ALT ALANINE AMINOTRANSFERASE 46 IU/L (10-60); AST ASPARTATE AMINOTRANSFERASE 20 IU/L (10-42); BILIRUBIN,TOTAL 0.8 mg/dL (0.2-1.0); BUN - BLOOD UREA NITROGEN 17 mg/dL (6-20); CALCIUM 9.5 mg/dL (8.5-10.3); CARBON DIOXIDE - CO2 28 mmol/L (21-32); CHLORIDE 93 mmol/L (101-111); CHOLESTEROL 312 mg/dL; CREATININE 0.6 mg/dL (0.4-1.0); GFR - MDRD 100 (>89); GLUCOSE 91 mg/dL (70-100); HDL CHOLESTEROL 103 mg/dL; IRON 106 ug/dL (28-170); LDL CHOLESTEROL,CALCULATED 199 mg/dL; LDL/HDL RATIO 1.9 (<4.4); POTASSIUM 4.2 mmol/L (3.5-5.0); SODIUM 129 mmol/L (135-145); TOTAL IRON BINDING CAPACITY 409 ug/dL (250-450); TOTAL PROTEIN 7.6 g/dL (6.7-8.2); TRANSFERRIN 292 mg/dL (192-382); TRIGLYCERIDES 51 mg/dL; VLDL CHOLESTEROL 10 mg/dL
[2021-02-23 13:31] LABS: THYROID STIMULATING HORMONE 1.51 uIU/mL (0.34-5.60)
[2021-02-23 13:38] LABS: FERRITIN 177.4 ng/mL (11.0-306.8)
== END 2021-02-23 23:59 | disposition home or self-care (01) ==
LOC: LAB.WCP 08:00
PROVIDERS: ATTEND Family Medicine
DX: E87.1 Hypo-osmolality and hyponatremia (principal); D64.9 Anemia, unspecified; I63.81 Other cerebral infarction due to occlusion or stenosis of small artery; Z86.59 Personal history of other mental and behavioral disorders
CPT/HCPCS: 36415; 80053; 80061; 82607; 82728; 83540; 83721; 84443; 84466; 85025

== ENCOUNTER 2021-02-27 10:54 | Outpatient (CLI) | payer MEDICARE, OTHER | END 2021-02-27 10:55 | disposition home or self-care (01) | LOC: RT 10:54 | PROVIDERS: ATTEND Internal Medicine Rheumatology | DX: R91.8 Other nonspecific abnormal finding of lung field (principal); R06.00 Dyspnea, unspecified | CPT/HCPCS: 94010; 94727; 94729 ==

== ENCOUNTER 2021-11-10 14:37 | Outpatient (CLI) | payer MEDICARE, OTHER ==
[2021-11-10 19:58] LABS: ALBUMIN 4.7 g/dL (3.2-5.5); BILIRUBIN,TOTAL 0.9 mg/dL (0.2-1.0); CALCIUM 9.3 mg/dL (8.5-10.3); CREATININE 0.6 mg/dL (0.4-1.0); POTASSIUM 4.1 mmol/L (3.5-5.0)
== END 2021-11-10 14:38 | disposition home or self-care (01) ==
LOC: LAB.S 14:37
PROVIDERS: ATTEND Internal Medicine
DX: R74.01 Elevation of levels of liver transaminase levels (principal)
CPT/HCPCS: 36415; 80053

== ENCOUNTER 2022-06-21 10:44 | Outpatient (CLI) | payer MEDICARE, OTHER ==
[2022-06-21 15:55] LABS: CALCIUM 9.8 mg/dL (8.5-10.3); CREATININE 0.6 mg/dL (0.4-1.0); MAGNESIUM 1.9 mg/dL (1.7-2.8); PHOSPHORUS 2.9 mg/dL (2.5-4.6)
== END 2022-06-21 10:45 | disposition home or self-care (01) ==
LOC: LAB.S 10:44
PROVIDERS: ATTEND Internal Medicine Rheumatology
DX: Z51.81 Encounter for therapeutic drug level monitoring (principal); Z79.83 Long term (current) use of bisphosphonates
CPT/HCPCS: 36415; 80048; 83735; 84100

== ENCOUNTER 2022-08-02 07:15 | Outpatient (CLI) | payer MEDICARE, OTHER ==
[2022-08-02 14:42] LABS: ALBUMIN 4.4 g/dL (3.2-5.5); ALBUMIN/GLOBULIN RATIO 1.6 (1.0-2.2); ALKALINE PHOSPHATASE 45 IU/L (42-121); ALT ALANINE AMINOTRANSFERASE 59 IU/L (10-60); AST ASPARTATE AMINOTRANSFERASE 20 IU/L (10-42); BILIRUBIN,TOTAL 0.7 mg/dL (0.2-1.0); BUN - BLOOD UREA NITROGEN 18 mg/dL (6-20); CALCIUM 9.2 mg/dL (8.5-10.3); CARBON DIOXIDE - CO2 30 mmol/L (21-32); CHLORIDE 98 mmol/L (101-111); CHOLESTEROL 291 mg/dL; CREATININE 0.6 mg/dL (0.4-1.0); GFR - MDRD 99 (>89); GLUCOSE 97 mg/dL (70-100); HDL CHOLESTEROL 97 mg/dL; LDL CHOLESTEROL,CALCULATED 185 mg/dL; LDL/HDL RATIO 1.9 (<4.4); SODIUM 134 mmol/L (135-145); TOTAL PROTEIN 7.1 g/dL (6.7-8.2); TRIGLYCERIDES 43 mg/dL; VLDL CHOLESTEROL 9 mg/dL
[2022-08-02 15:01] LABS: BASOPHILS # (AUTO) 0.1 10^3/uL (0.0-0.1); EOSINOPHILS # (AUTO) 0.2 10^3/uL (0.0-0.7); EOSINOPHILS % (AUTO) 3.2 %; HCT - HEMATOCRIT 36.3 % (37.0-47.0); HGB - HEMOGLOBIN 11.9 g/dL (12.0-16.0); LYMPHOCYTES # (AUTO) 1.5 10^3/uL (1.5-3.5); LYMPHOCYTES % (AUTO) 24.4 %; MEAN CORPUSCULAR HEMOGLOBIN 31.2 pg (27.0-31.0); MEAN CORPUSCULAR HGB CONC 32.8 g/dL (32.0-36.0); MEAN CORPUSCULAR VOLUME 95.3 fL (81.0-99.0); MEAN PLATELET VOLUME 9.8 fL (7.9-10.8); MONOCYTES # (AUTO) 0.7 10^3/uL (0.0-1.0); MONOCYTES % (AUTO) 10.8 %; NEUTROPHILS # (AUTO) 3.8 10^3/uL (1.5-6.6); NEUTROPHILS % (AUTO) 60.1 %; PLT - PLATELET COUNT 335 10^3/uL (130-450); RED BLOOD COUNT 3.81 10^6/uL (4.20-5.40); RED CELL DISTRIBUTION WIDTH 12.8 % (12.0-15.0); WHITE BLOOD COUNT 6.3 x10^3/uL (4.8-10.8)
[2022-08-02 15:17] LABS: THYROID STIMULATING HORMONE 2.1 uIU/mL (0.34-5.60)
== END 2022-08-02 07:16 | disposition home or self-care (01) ==
LOC: LAB.S 07:15
PROVIDERS: ATTEND Physician Assistant
DX: E78.5 Hyperlipidemia, unspecified (principal); R53.1 Weakness
CPT/HCPCS: 36415; 80053; 80061; 82306; 82607; 83721; 84443; 85025

== ENCOUNTER 2023-02-09 10:30 | Outpatient (CLI) | payer MEDICARE, OTHER ==
--- NOTE | 2023-02-09 11:17 | XRAY Report ---
PROCEDURE: Chest 2 View X-Ray INDICATIONS: SOB TECHNIQUE: 2 views of the chest were acquired. COMPARISON: 10/22/2020. FINDINGS: Surgical changes and devices: None. Lungs and pleura: No pleural effusions or pneumothorax. Lungs are clear. Mediastinum: Mediastinal contours appear normal. Heart size is normal. Bones and chest wall: No suspicious bony lesions. Overlying soft tissues appear unremarkable. IMPRESSION: No acute cardiopulmonary process. Reviewed by: Dayo Jean MD on 02/09/2023 11:15 AM PDT Approved by: Dayo Jean MD on 02/09/2023 11:15 AM PDT Station ID: [id number]
== END 2023-02-09 10:31 | disposition home or self-care (01) ==
LOC: DI 10:30
PROVIDERS: ATTEND Physician Assistant
DX: R06.02 Shortness of breath (principal)

== ENCOUNTER 2023-02-11 11:40 | Emergency (ER) | payer MEDICARE, OTHER ==
[2023-02-11 11:57] VITALS: BP 139/87; O2SAT 100
[2023-02-11 12:58] LABS: B. PARAPERTUSSIS- RESP PCR PAN NOT DETECTED; B. PERTUSSIS- RESP PCR PANEL NOT DETECTED; C. PNEUMONIAE- RESP PCR PANEL NOT DETECTED; CORONAVIRUS 229E-RESP PCR NOT DETECTED; CORONAVIRUS HKU1-RESP PCR NOT DETECTED; CORONAVIRUS NL63-RESP PCR NOT DETECTED; CORONAVIRUS OC43-RESP PCR NOT DETECTED; HUMAN METAPNEUMOVIRUS NOT DETECTED; INFLUENZA A- RESP PCR PANEL NOT DETECTED; INFLUENZA B - RESP PCR PANEL NOT DETECTED; M. PNEUMONIAE- RESP PCR PANEL NOT DETECTED; PARAINFLUENZA VIRUS 1 NOT DETECTED; PARAINFLUENZA VIRUS 2 NOT DETECTED; PARAINFLUENZA VIRUS 3 NOT DETECTED; PARAINFLUENZA VIRUS 4 NOT DETECTED; RHINOVIRUS/ENTEROVIRUS NOT DETECTED; RSV- RESP PCR PANEL NOT DETECTED; SARS-CoV-2 -RESP PCR PANEL NOT DETECTED
--- NOTE | 2023-02-11 14:28 | ED Physician Documentation ---
PD HPI HEADACHE - Stated complaint Stated Complaint: SOA/HEAD PX - Chief complaint Chief Complaint: General - History obtained from History obtained from: Patient - History of Present Illness Timing - onset: How many weeks ago (has had a week of frontal to facial headache and feeling of burning pain ("fire in my face"). Seen at walk in for it without specific dx. Also having complaint of dyspnea that has been care home issue but worse this past week or so as well. No couhg, drainage, fevers.) Timing - onset during: Light activity Timing - details: Gradual onset, Still present, Waxing and waning Worst headache ever?: No: Worst headache ever? Location: Front (having headach frontal area and even more so in the facial area around orbits and cheeks.) Quality: Throbbing, Aching Associated symptoms: No: Fever, Stiff neck, Nausea, Weakness Worsened by: No: Light, Noise Contributing factors: Hypertension. No: Recent illness Recently seen: Clinic, Other (she states she has had eval by [employer] Supervisor for the dyspnea in the past year with stress test, ECHO, and CT chest calcium scoring without evident CAD/CHF.) Review of Systems Constitutional: denies: Fever, Chills Nose: reports: Rhinorrhea / runny nose, Congestion, Sinus pressure / pain Throat: denies: Sore throat Cardiac: denies: Chest pain / pressure, Palpitations, Pedal edema, Calf pain Respiratory: reports: Dyspnea. denies: Cough, Wheezing GI: denies: Abdominal Pain, Vomiting, Bloody / black stool Skin: denies: Rash, Lesions PD PAST MEDICAL HISTORY - Past Medical History Cardiovascular: Hypertension Respiratory: None Neuro: None Endocrine/Autoimmune: None GI: GERD, Colon polyps, Diverticulitis, Other EDUCATIONAL AIDE: Ovarian cysts : None HEENT: Chronic sinusitis Psych: Eating disorder Musculoskeletal: Osteoarthritis, Osteopenia, Chronic back pain Derm: None - Past Surgical History Past Surgical History: Yes General: Appendectomy, Colonoscopy Ortho: Spine surgery, Other /EDUCATIONAL AIDE: Other HEENT: Cataracts - Present Medications Home Medications: Ambulatory Orders Medication Instructions Recorded Confirmed Loratadine [Claritin] 1 tab PO PRN PRN 10/14/18 10/22/20 hydrALAZINE [Apresoline] 25 mg PO QID #120 tablet 06/05/20 10/22/20 HYDROcod/ACETAM 5/325 [Edroy 5/325] 1 - 2 tab PO Q6H PRN #15 tablet 10/22/20 Knee Scooter 1 unit TD ONCE #1 10/22/20 diltiaZEM CD [Cardizem Cd] 120 mg PO DAILY 10/22/20 10/22/20 LORazepam [Ativan] 1 mg PO TID PRN #12 tablet 11/07/20 Fluticasone [Flonase] 1 sprays ELIZABETH BID 30 Days #16 gm 02/11/23 Fluticasone/Salmeterol [Advair 1 each IH BID 30 Days #1 each 02/11/23 100-50 Diskus] - Allergies Allergies/Adverse Reactions: Allergies Allergy/AdvReac Type Severity Reaction Status Date / Time Sulfa (Sulfonamide Allergy Intermediate Hives Verified 11/07/20 18:33 Antibiotics) lisinopril Allergy Unknown Verified 11/07/20 18:33 metoprolol [From Lopressor] Allergy Unknown Verified 11/07/20 18:33 naltrexone Allergy Unknown Verified 11/07/20 18:33 hydrochlorothiazide AdvReac Severe Cramps Verified 11/07/20 18:33 antibiotic Allergy Unknown Uncoded 11/07/20 18:33 - Social History Does the pt smoke?: No Smoking Status: Never smoker Does the pt drink ETOH?: Yes Does the pt have substance abuse?: No - Immunizations Immunizations are current?: Yes PD ED PE NORMAL - Vitals Vital signs reviewed: Yes - General General: Alert and oriented X 3, No acute distress (but does seem anxious. ), Well developed/nourished - HEENT HEENT: PERRL, EOMI, Ears normal, Moist mucous membranes, Pharynx benign - Neck Neck: Supple, no meningeal sign, No adenopathy - Cardiac Cardiac: RRR, No murmur - Respiratory Respiratory: Clear bilaterally - Derm Derm: Normal color, Warm and dry - Extremities Extremities: No edema, No calf tenderness / cord - Neuro Neuro: Alert and oriented X 3, No motor deficit, Normal speech Eye Opening: Spontaneous Motor: Obeys Commands Verbal: Oriented GCS Score: 15 Results - Vitals Vitals: Vital Signs - 24 hr 02/11/23 11:52 Temperature 36.5 C Heart Rate 86 Respiratory 16 Rate Blood Pressure 139/87 H O2 Saturation 100 Oxygen O2 Source Room air - Labs Labs: Laboratory Tests 02/11/23 02/11/23 02/11/23 12:02 15:11 15:11 WBC 7.1 RBC 3.87 L Hgb 12.2 Hct 37.2 MCV 96.1 MCH 31.5 H MCHC 32.8 RDW 12.2 Plt Count 296 MPV 9.3 Neut # (Auto) 4.7 Lymph # (Auto) 1.6 [place] # (Auto) 0.5 Eos # (Auto) 0.2 Baso # (Auto) 0.1 Absolute Nucleated RBC 0.00 Nucleated RBC % 0.0 ESR 17 Sodium Potassium Chloride Carbon Dioxide Anion Gap BUN Creatinine Estimated GFR (MDRD) Glucose Calcium Magnesium Total Bilirubin AST ALT Alkaline Phosphatase B-Natriuretic Peptide Total Protein Albumin Globulin Albumin/Globulin Ratio Lipase Vitamin B12 Nasal Adenovirus (PCR) NOT DETECTED Nasal B. parapertussis DNA (PCR) NOT DETECTED Nasal Coronavir 229E PCR NOT DETECTED Nasal Coronavir HKU1 PCR NOT DETECTED Nasal Coronavir NL63 PCR NOT DETECTED Nasal Coronavir OC43 PCR NOT DETECTED Nasal Enterovir/Rhinovir PCR NOT DETECTED Nasal Influenza B PCR NOT DETECTED Nasal Influenza A PCR NOT DETECTED Nasal Parainfluen 1 PCR NOT DETECTED Nasal Parainfluen 2 PCR NOT DETECTED Nasal Parainfluen 3 PCR NOT DETECTED Nasal Parainfluen 4 PCR NOT DETECTED Nasal RSV (PCR) NOT DETECTED Nasal B.pertussis DNA PCR NOT DETECTED Nasal C.pneumoniae (PCR) NOT DETECTED Elizabeth Human Metapneumo PCR NOT DETECTED Nasal M.pneumoniae (PCR) NOT DETECTED Nasal SARS-CoV-2 (PCR) NOT DETECTED 02/11/23 02/11/23 15:11 15:11 WBC RBC Hgb Hct MCV MCH MCHC RDW Plt Count MPV Neut # (Auto) Lymph # (Auto) [place] # (Auto) Eos # (Auto) Baso # (Auto) Absolute Nucleated RBC Nucleated RBC % ESR Sodium 132 L Potassium 4.0 Chloride 97 L Carbon Dioxide 28 Anion Gap 7.0 BUN 21 H Creatinine 0.7 Estimated GFR (MDRD) 83 L Glucose 92 Calcium 9.5 Magnesium 1.8 Total Bilirubin 0.5 AST 15 ALT 29 Alkaline Phosphatase 43 B-Natriuretic Peptide 77 Total Protein 7.4 Albumin 4.8 Globulin 2.6 Albumin/Globulin Ratio 1.8 Lipase 43 Vitamin B12 876 Nasal Adenovirus (PCR) Nasal B. parapertussis DNA (PCR) Nasal Coronavir 229E PCR Nasal Coronavir HKU1 PCR Nasal Coronavir NL63 PCR Nasal Coronavir OC43 PCR Nasal Enterovir/Rhinovir PCR Nasal Influenza B PCR Nasal Influenza A PCR Nasal Parainfluen 1 PCR Nasal Parainfluen 2 PCR Nasal Parainfluen 3 PCR Nasal Parainfluen 4 PCR Nasal RSV (PCR) Nasal B.pertussis DNA PCR Nasal C.pneumoniae (PCR) Elizabeth Human Metapneumo PCR Nasal M.pneumoniae (PCR) Nasal SARS-CoV-2 (PCR) PD Medical Decision Making - ED course Complexity details: reviewed results (labs for CBC did not show anemia nor electrolyte problems. no evident diabetes. ESR normal so excluding vasculitis. Was to get CT face/head but she wanted to leave as had been long time in ED due to staffing and patient flow. I would target tx as sinus with flonase, dyspnea with Advair for now.), considered differential (patient with few complaints of facial pain/frontal headache, also longer term dyspnea nonexertional with recent worse, and also anxiety. ), d/w patient Departure - Departure Disposition: 01 Home, Self Care Clinical Impression: Dyspnea, Frontal headache, Facial pain Condition: Stable Record reviewed to determine appropriate education?: Yes Follow-Up: Agnieszka Velarde PA-C [Primary Care Provider] - Prescriptions: Fluticasone/Salmeterol [Advair 100-50 Diskus] 1 each IH BID 30 Days #1 each Fluticasone [Flonase] 1 sprays ELIZABETH BID 30 Days #16 gm Comments: Am sorry your department fluids slower today and it took so long. Follow-up with your primary care and call and see if they could order an outpatient CT of the head and sinuses for you. Your basic blood tests are looking okay here without any abnormality of your white count or inflammatory markers or electrolytes. Your symptoms sound likely to be some inflammatory changes through the lungs regarding your shortness of breath and probably some sinus inflammation as well. Your white blood cell count on your blood count does not indicate major infection per se. I would suggest trying fluticasone nasal spray as well as inhaler and see if you have improvement in your sinuses and breathing with that over the next week or 2 but I would suggest taking them both regularly for a month. Follow-up with your primary care. Return to the ER if needed. I sent the prescriptions to your preferred pharmacy. Forms: PCP List Discharge Date/Time: 02/11/23 17:02
[2023-02-11 15:16] LABS: BASOPHILS # (AUTO) 0.1 10^3/uL (0.0-0.1); EOSINOPHILS # (AUTO) 0.2 10^3/uL (0.0-0.7); EOSINOPHILS % (AUTO) 2.5 %; HCT - HEMATOCRIT 37.2 % (37.0-47.0); HGB - HEMOGLOBIN 12.2 g/dL (12.0-16.0); LYMPHOCYTES # (AUTO) 1.6 10^3/uL (1.5-3.5); LYMPHOCYTES % (AUTO) 22.7 %; MEAN CORPUSCULAR HEMOGLOBIN 31.5 pg (27.0-31.0); MEAN CORPUSCULAR HGB CONC 32.8 g/dL (32.0-36.0); MEAN CORPUSCULAR VOLUME 96.1 fL (81.0-99.0); MEAN PLATELET VOLUME 9.3 fL (7.9-10.8); MONOCYTES # (AUTO) 0.5 10^3/uL (0.0-1.0); MONOCYTES % (AUTO) 7.5 %; NEUTROPHILS # (AUTO) 4.7 10^3/uL (1.5-6.6); NEUTROPHILS % (AUTO) 65.9 %; PLT - PLATELET COUNT 296 10^3/uL (130-450); RED BLOOD COUNT 3.87 10^6/uL (4.20-5.40); RED CELL DISTRIBUTION WIDTH 12.2 % (12.0-15.0); WHITE BLOOD COUNT 7.1 x10^3/uL (4.8-10.8)
[2023-02-11 15:33] LABS: ALBUMIN 4.8 g/dL (3.2-5.5); ALBUMIN/GLOBULIN RATIO 1.8 (1.0-2.2); BILIRUBIN,TOTAL 0.5 mg/dL (0.2-1.0); CALCIUM 9.5 mg/dL (8.5-10.3); CREATININE 0.7 mg/dL (0.6-1.3); MAGNESIUM 1.8 mg/dL (1.7-2.3); TOTAL PROTEIN 7.4 g/dL (6.4-8.9)
== END 2023-02-11 17:02 | disposition home or self-care (01) ==
LOC: ED 11:40
DX: R51.9 Headache, unspecified (principal); R06.00 Dyspnea, unspecified; I10 Essential (primary) hypertension; Z20.822 Contact with and (suspected) exposure to COVID-19; Z79.899 Other long term (current) drug therapy; Z79.51 Long term (current) use of inhaled steroids
CPT/HCPCS: 36415; 80053; 82607; 83690; 83735; 83880; 85025; 85651; 87633; 99283; 99284

== ENCOUNTER 2023-03-07 09:16 | Outpatient (CLI) | payer MEDICARE, OTHER | END 2023-03-07 09:17 | disposition home or self-care (01) | LOC: RT 09:16 | PROVIDERS: ATTEND Physician Assistant | DX: R94.2 Abnormal results of pulmonary function studies (principal); R06.02 Shortness of breath | CPT/HCPCS: 94060; 94729 ==

== ENCOUNTER 2023-03-15 08:05 | Outpatient (CLI) | payer MEDICARE, OTHER ==
--- NOTE | 2023-03-15 11:54 | CT Report ---
PROCEDURE: Maxillofacial CT without contrast INDICATIONS: HEADACHE, SINUSITIS TECHNIQUE: Helical axial CT of the facial structures and mandible were obtained without intravenous contrast and reformatted in multiple planes. Radiation dose reduction was achieved using automated e xposure control and adjustment of mA and/or kV according to patient size. COMPARISON: None. FINDINGS: Maxillofacial Bones: The zygomaticomaxillary complex is intact. The pterygoid plates and skull base are unremarkable. No evidence of fracture or lytic lesion. Mandible: The mandible is intact without fracture. Unremarkable temporomandibular articulation. Dentition: Unremarkable mandibular and maxillary dentition. Soft tissues: No maxillofacial soft tissue swelling. No radiopaque foreign bodies. Bilateral intrao cular lens replacements noted. Orbits: The osseous orbits, globes and ocular muscles unremarkable. Sinuses and Mastoid: Bilateral maxillary sinus mucosal thickening measures up to 3 mm on the right b oth outflow tracts are patent. Mucosal thickening in the frontal, ethmoid and sphenoid sinus also not ed. No remodeling. 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
--- NOTE | 2023-03-15 15:43 | CT Report ---
PROCEDURE: CHEST WO INDICATIONS: Abnormal PFT TECHNIQUE: Noncontrast 1mm axial images were acquired from the pulmonary apices to the posterior costophrenic an gles. Axial 5 mm soft tissue kernel reconstructions were performed as well as 8 mm axial MIP and cor onal and sagittal 5 mm reformations. For radiation dose reduction, the following was used: automate d exposure control, adjustment of mA and/or kV according to patient size. COMPARISON: CT chest on February 21, 2021 FINDINGS: Image quality: Excellent. Lungs and pleura: Compared to CT chest dated February 21, 2021, no new or enlarging pulmonary nodule o r consolidation. Stable subtle groundglass opacity in the right apex measuring approximately 1 x 0.9 cm (3/59, 7), best seen on MIP reconstructions (532), previously 1 x 1 cm (34, 01/31). No honeyc ombing or reticulation. No emphysema. Patent central airways. No bronchiectasis. No pleural effusions . No pneumothorax. Mediastinum: Heart size is normal. No pericardial effusion. Thoracic aorta and pulmonary artery are n ormal in caliber. Mild calcification of the thoracic aorta. No mediastinal adenopathy by size criteri a. Small hiatal hernia. Chest wall and lower neck: Thyroid is unremarkable. No axillary or supraclavicular adenopathy by size . Bones: No acute fracture. No aggressive appearing lytic or blastic osseous lesion. Accentuated thorac ic kyphosis, as before. Moderate multilevel degenerative changes of the thoracic spine with stable mi ld anterior wedging at T8. Partially visualized marked degenerative changes of the lumbar spine. Upper Abdomen: Limited noncontrast images of the upper abdomen and are unremarkable. IMPRESSION: 1. Compared to CT chest dated February 21, 2021, no new or enlarging pulmonary nodule or consolidation . Stable subtle groundglass opacity in the right apex measuring approximately 1 x 0.9 cm. -Fleischner guidelines: Consider repeat CT chest in 1 year to document 3-year stability. 2. No CT findings to explain patient's abnormal pulmonary function tests. Specifically, no evidence o f interstitial lung disease. Reviewed by: Cassie Meehan MD on 03/15/2023 3:42 PM PDT Approved by: Cassie Meehan MD on 03/15/2023 3:42 PM PDT Station ID: [id number]
== END 2023-03-15 08:06 | disposition home or self-care (01) ==
LOC: DI 08:05
PROVIDERS: ATTEND Physician Assistant
DX: J32.4 Chronic pansinusitis (principal); R51.9 Headache, unspecified; R94.2 Abnormal results of pulmonary function studies; J98.01 Acute bronchospasm

== ENCOUNTER 2023-11-21 08:00 | Outpatient (CLI) | payer MEDICARE, OTHER ==
[2023-11-21 17:38] LABS: BILIRUBIN,URINE NEGATIVE (NEGATIVE); CLARITY,URINE CLEAR (CLEAR); KETONES,URINE (UA) NEGATIVE (NEGATIVE); LEUKOCYTE ESTERASE, URINE NEGATIVE (NEGATIVE); NITRITE,URINE NEGATIVE (NEGATIVE); OCCULT BLOOD,URINE NEGATIVE (NEGATIVE); PH,URINE 5.5 PH (5.0-7.5); PROTEIN,URINE NEGATIVE (NEGATIVE); UROBILINOGEN,URINE 0.2 (NORMAL) E.U./dL (NORMAL)
[2023-11-21 17:39] LABS: GLUCOSE, URINE (UA) NEGATIVE (NEGATIVE)
[2023-11-21 17:47] LABS: BACTERIA,URINE Rare /HPF (None Seen); RBC,URINE 0-5 /HPF (0-5); SQUAMOUS EPITHELIAL CELL,UR NONE SEEN (<= Few); WBC,URINE 0-3 /HPF (0-5)
== END 2023-11-21 23:59 | disposition home or self-care (01) ==
LOC: LAB.N 08:00
PROVIDERS: ATTEND Physician Assistant
DX: R35.0 Frequency of micturition (principal)
CPT/HCPCS: 81001; 87086